=== PATIENT | female | born 1940 | race Caucasian/White ===

== ENCOUNTER → 2016-04-22 | Outpatient (CLI) | payer MEDICARE, OTHER ==
--- NOTE | 2016-04-22 22:14 | WWHP ---
CHIEF COMPLAINT: Patient is here for her routine gynecologic exam and mammogram. HPI: This is a 76-year-old G3, P3 with an LMP of 1989. The patient has been experiencing some vulvar irritation since around the time of her neck surgery in 11/2015. She says the area can feel itchy. She has also noticed a small bump in the vulvar area. She states it is not painful and does not resemble a blister. She has used [id number] Vagisil and there has been some improvement. She is otherwise without complaints and denies any postmenopausal bleeding. PAST MEDICAL HISTORY: Type 2 diabetes, hypothyroidism, elevated cholesterol, and chronic back problems eczema and she had a history of bulimia in her 40s. MEDICATIONS: 1. Escitalopram 10 mg daily. 2. Levothyroxine 125 mcg daily. 3. Metformin 500 mg 2 daily. 4. Simvastatin 40 mg daily. 5. Triamterene 1/2 tablet every other day. 6. Hydrocodone 7.5 mg p.r.n. 7. Elocon cream as directed. ALLERGIES TO SULFA, WHICH CAUSED A RASH. PAST SURGICAL HISTORY: Neck surgery in 11/2015, rotator cuff surgery x2, back surgery in the past, cholecystectomy, tonsillectomy and 2 sling procedures for the bladder in the past. Colonoscopy: She has had multiple ones done and the last one was in [address] Rushing. PAST OB HISTORY: 3 vaginal deliveries and 1 was put up for adoption. PAST WEB PRODUCTION ASSISTANT HISTORY: She has no history of STDs and has been menopausal since 1989. SOCIAL HISTORY: She quit smoking in 1969. She denies alcohol and drug use. She has been since 1966. She is retired. FAMILY HISTORY: Father had prostate cancer. Sister had lung and liver cancer. Mother had breast cancer in her 80s. Two brothers were alcoholics. Mother had CHF and diabetes. REVIEW OF SYSTEMS: Weight has been stable. She denies cardiac or GI problems. RESPIRATORY: She has had some and nasal drainage, which she thinks is related to allergies. She denies maltreatment or falling. Bladder control has been good since she had some type of injections for her incontinence in the past. PHYSICAL EXAM: Blood pressure 155/64. Repeat blood pressure 144/67. Weight 219 pounds. Height 5 feet 8-1/2 inches. Temperature 96.8, pulse 73. This is a well-developed, heavyset white female who is alert and oriented x3, in no acute distress. HEENT is within normal limits. NECK: Supple without mass or thyromegaly. CHEST AND LUNGS: Clear to auscultation. HEART: Regular rate and rhythm. Breasts are without mass or discharge. There is bilateral nipple inversion which she states has been this way for many years. Axillary is negative for adenopathy. BACK: Negative for CVA tenderness. ABDOMEN: Soft, nontender, without palpable masses. PELVIC: External genitalia reveal mild to moderate atrophy. There is 1-mm whitish, slightly raised bump that is pinhead size and is nontender and is nonerythematous. There are no other lesions noted. Cervix and vagina reveal mild to moderate atrophy without lesions. Cervix is somewhat stenotic. There is no evidence of prolapse. The uterus is midposition, nongravid size and nontender. There are no palpable adnexal masses or tenderness. Rectovaginal is negative for mass or tenderness and is negative for occult blood. EXTREMITIES: Nontender. IMPRESSION: 1. A 76-year-old menopausal female with mild vulvar pruritus. 2. Benign-appearing vulvar 1-mm bump that appears to be some type of small inclusion cyst or benign-appearing chamberlain. PLAN: 1. Pap smear was performed. 2. Self-breast examination was discussed. 3. Mammogram will be done today. 4. Kenalog 0.1% cream b.i.d. p.r.n. for vulvar pruritus and irritation. She will let me know if the very small bump changes. I have reassured her that this appears very benign. 5. She will get the records from her last bone density test to see when it was last done. If she is due for this, she can do this at [facility]. 6. She will return in 1 year. MATR
--- NOTE | 2016-04-24 07:37 | MM ---
Reason for exam: screening (asymptomatic). Last mammogram was performed 1 year and 8 months ago. History: Patient is postmenopausal and has history of other cancer at age 72. Family history of breast cancer in mother. Took estrogen for 14 years. Took progesterone for 14 years. Physical Findings: A clinical breast exam by your physician is recommended on an annual basis and results should be correlated with mammographic findings. MG 3D Screening Mammo W/Cad Bilateral CC and MLO view(s) were taken. Prior study comparison: September 01, 2014, bilateral MG screening mammo w CAD. May 13, 2012, bilateral digital screening mammo w/CAD. May 12, 2011, bilateral digital screening mammo w/CAD. There are scattered fibroglandular densities. No significant changes when compared with prior studies. ASSESSMENT: Negative, BI-RAD 1 RECOMMENDATION: Routine screening mammogram of both breasts in 1 year.
== END | disposition home or self-care (01) ==
LOC: WWCWWP 03-18 14:02
PROVIDERS: ATTEND Obstetrics & Gynecology
DX: Z12.31 Encounter for screening mammogram for malignant neoplasm of breast (principal)
CPT/HCPCS: 77063; G0202

== ENCOUNTER → 2016-09-16 | Outpatient (CLI) | payer MEDICARE, OTHER ==
--- NOTE | 2016-09-17 10:47 | WWPN ---
DATE OF SERVICE: 09/16/2016 CHIEF COMPLAINT: Hot flashes for 2 years. HPI: This is a 76-year-old G3, P3 with an LMP of 1989 who has been menopausal since 1989. She states she has been noticing hot flashes over the last 2 years or so and these can occur during the day and at night. She states they are tolerable. Occasionally she feels like her head is "in an oven". She has never been on HRT. She states she had similar symptoms when she was in her 50s, but they did improve after the menopause. MEDICATIONS: Please see her medications from the 04/22/16 H&P. She is also taking Ellura daily to prevent bladder infections, a protein supplement and Aricept. REVIEW OF SYSTEMS: She denies respiratory, cardiac or GI problems. PHYSICAL EXAM: Blood pressure is 130/78. Height 5 feet 8-1/2 inches. Weight 220 pounds. Temperature 97.7. Pulse 71. This is a well-developed, well-nourished white female who is alert and oriented x3 in no acute distress. IMPRESSION: 1. A 76-year-old menopausal female with hot flashes during the past 2 years, which resemble her menopausal symptoms in her 50s. At this time, I doubt the vasomotor symptoms are related to the menopause since she is so remote from the menopausal change. Differential diagnosis will include side effects from medications that she takes including her thyroid medicine, Ellura and Aricept. PLAN: 1. 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 She can make sure that the thyroid is well regulated. 2. I have also recommended that she follow up with her pharmacist who is familiar with all of her medications to see if any medications can have hot flashes as a side effect and if so she can follow up with the doctor prescribing that particular medication. 3. I have also recommended that she dress in layers and keep the glass of ice water near by when she does have these type of symptoms. 4. We have discussed how I do not feel that these are directly related to her ovarian function change that she went through in her 50s. 5. She will return in 04/12 for her annual examination p.r.n. Total time spent with the patient 15 minutes. MART
== END | disposition home or self-care (01) ==
LOC: WWCWWP 11:29
PROVIDERS: ATTEND Obstetrics & Gynecology
DX: Z01.419 Encounter for gynecological examination (general) (routine) without abnormal findings (principal)

== ENCOUNTER → 2016-11-18 | Outpatient (CLI) | payer MEDICARE, OTHER ==
--- NOTE | 2016-11-18 15:29 | CT ---
EXAMINATION TYPE: CT cervical spine wo con DATE OF EXAM: 11/18/2016 COMPARISON: CT cervical spine September 10, 2015 HISTORY: Follow-up from cervical fusion . CT DLP: 611.00 mGycm. Automated Exposure Control for Dose Reduction was Utilized. TECHNIQUE: CT scan of the cervical spine is obtained without contrast, axial images are obtained, sa gittal and coronal reformatted images are also reviewed. FINDINGS: Cervical spine is visualized in its entirety from C1 through upper thoracic levels, redemon strate straightened alignment without evidence of acute fracture or dislocation. Prevertebral soft t issue appears within normal limits. The C1-C2 articulation is within normal limits on the coronal im ages. There is interval surgical change with artificial disc material anterior fusion plate C6-C7 level. Th ere is persistent moderate spurring and mild to moderate disc space narrowing C5-C6 level. Thyroid gl and is felt within normal limits. Lung apices are clear. IMPRESSION: Interval surgery C6-C7 level with satisfactory alignment noted.
== END | disposition home or self-care (01) ==
LOC: RADCTMAIN 15:00
PROVIDERS: ATTEND Neurological Surgery
DX: M48.02 Spinal stenosis, cervical region (principal); Z98.890 Other specified postprocedural states
CPT/HCPCS: 72125

== ENCOUNTER 2017-05-20 13:49 | Emergency (ER) | payer MEDICARE, OTHER ==
[2017-05-20 14:06] VITALS: RESP 18
[2017-05-20 15:18] LABS: Partial Thromboplastin Time 22.2 sec (22.0-30.0); Prothrombin Time 10.2 sec (9.0-12.0)
[2017-05-20 15:19] LABS: Basophils % (A) 1 %; Eosinophils # (A) 0.5 k/uL (0-0.7); Eosinophils % (A) 6 %; HCT 43.5 % (34.0-46.0); HGB 14.9 gm/dL (11.4-16.0); Lymphocytes # (A) 2.1 k/uL (1.0-4.8); Lymphocytes % (A) 24 %; MCH 31.2 pg (25.0-35.0); MCHC 34.2 g/dL (31.0-37.0); MCV 91.3 fL (80.0-100.0); Mean Platelet Volume 7.1; Monocytes # (A) 0.4 k/uL (0-1.0); Monocytes % (A) 4 %; Neutrophils # (A) 5.5 k/uL (1.3-7.7); Neutrophils % (A) 64 %; Platelet Count 191 k/uL (150-450); RBC 4.76 m/uL (3.80-5.40); RDW 13.3 % (11.5-15.5); WBC 8.6 k/uL (3.8-10.6)
[2017-05-20] MEDS ORDERED: SODIUM CHLORIDE 0.9% 500 ML IV STA (15:26)
[2017-05-20] MEDS ORDERED: MECLIZINE 12.5 MG TAB PO STA (15:26)
--- NOTE | 2017-05-20 15:29 | ED ---
General Adult HPI - General Chief complaint: Dizziness Stated complaint: Dizziness Time Seen by Provider: 05/20/17 15:13 Source: patient, RN notes reviewed Mode of arrival: wheelchair Limitations: no limitations - History of Present Illness Initial comments: 77-year-old female presents to the emergency department with a chief complaint of vertigo attack. Patient has been diagnosed with vertigo and sees Dr. Blake. The last 2 nights she's woken up and she is on her way to the bathroom she had an episode of spinning. She states that she that down she corrected herself and it improved. Today when she was at [employer] she had on episode where the world was spinning she was able to collect herself and sit down and she states it has improved but if she sits up or looks up she will get this spinning like sensation again. No nausea no vomiting no chest pain no shortness of breath with this. Patient states much like the vertigo she's had in the past just seems more intense. Patient denies any recent cough and congestion-like symptoms. They were concerned due to how intense the spinning was at a boxer so she thought that she should be seen. Patient denies any recent fever, chills, shortness of breath, chest pain, back pain, abdominal pain , nausea vomiting, numbness or tingling, dysuria or hematuria, constipation or diarrhea, headaches or visual changes, or any other current symptoms. - Related Data Home Medications Medication Instructions Recorded Confirmed Levothyroxine Sodium [Synthroid] 125 mcg PO DAILY 05/22/15 05/20/17 Simvastatin [Zocor] 40 mg PO DAILY 05/22/15 05/20/17 Triamterene-Hctz 37.5-25Mg 0.5 tab PO DAILY 05/22/15 05/20/17 [Maxzide 37.5-25] metFORMIN HCL [Glucophage] 500 mg PO DAILY 10/18/15 05/20/17 Ergocalciferol (Vitamin D2) 50,000 unit PO FR 05/20/17 05/20/17 [Vitamin D2] Previous Rx's Medication Instructions Recorded Ciprofloxacin HCl [Cipro] 500 mg PO Q12HR #14 tablet 05/20/17 Meclizine [Antivert] 12.5 mg PO Q6H #20 tablet 05/20/17 Allergies Allergy/AdvReac Type Severity Reaction Status Date / Time Sulfa (Sulfonamide Allergy Rash/Hives Verified 05/20/17 16:00 Antibiotics) Review of Systems ROS Statement: Those systems with pertinent positive or pertinent negative responses have been documented in the HPI. ROS Other: All systems not noted in ROS Statement are negative. Past Medical History Past Medical History: Diabetes Mellitus, Hyperlipidemia, Osteoarthritis (OA), Thyroid Disorder Additional Past Medical History / Comment(s): Thyroid disorder, states was recently taken off oral diabetes medication. History of Any Multi-Drug Resistant Organisms: None Reported Past Surgical History: Back Surgery, Cholecystectomy Additional Past Surgical History / Comment(s): Bilateral rotator cuff surgery Past Anesthesia/Blood Transfusion Reactions: No Reported Reaction Past Psychological History: No Psychological Hx Reported Smoking Status: Former smoker Past Alcohol Use History: None Reported Past Drug Use History: None Reported - Past Family History Father Family Medical History: Cancer Mother Family Medical History: Cancer General Exam Limitations: no limitations General appearance: alert, in no apparent distress Eye exam: Present: normal appearance, PERRL, EOMI. Absent: scleral icterus, conjunctival injection, periorbital swelling ENT exam: Present: normal exam, mucous membranes moist Neck exam: Present: normal inspection. Absent: tenderness, meningismus, lymphadenopathy Respiratory exam: Present: normal lung sounds bilaterally. Absent: respiratory distress, wheezes, rales, rhonchi, stridor Cardiovascular Exam: Present: regular rate, normal rhythm, normal heart sounds. Absent: systolic murmur, diastolic murmur, rubs, gallop, clicks Neurological exam: Present: alert, oriented X3, CN II-XII intact, reflexes normal. Absent: motor sensory deficit Psychiatric exam: Present: normal affect, normal mood Skin exam: Present: warm, dry, intact, normal color. Absent: rash Course Vital Signs 05/20/17 05/20/17 14:04 16:27 Temperature 98.2 F Pulse Rate 68 65 Respiratory 18 18 Rate Blood Pressure 125/91 129/66 O2 Sat by Pulse 98 97 Oximetry EKG Findings - EKG Comments: EKG Findings:: normal sinus rhythm 63 bpm, normal axis, no atopy, no S-T depressions or elevations, Medical Decision Making - Medical Decision Making 77-year-old female presents with chief complaint of vertigo-like symptoms. Patient does have a history of vertigo and states this feels much like this. At this time patient's lab work has been reviewed. She was reassessed and states that her vertigo is much improved after the bathroom without issues. This and we'll start her on Antivert for home as well as an antibiotic for the UTI. We did discuss follow-up with Dr. Blake her ENT for continued vertigo and return parameters. Patient states she's feeling much better she does feel comfortable going home and all questions have been answered. She will be discharged. - Lab Data Result diagrams: 05/20/17 14:43 05/20/17 14:43 Lab Results 05/20/17 05/20/17 05/20/17 Range/Units 14:43 14:43 14:43 WBC 8.6 (3.8-10.6) k/uL RBC 4.76 (3.80-5.40) m/uL Hgb 14.9 (11.4-16.0) gm/dL Hct 43.5 (34.0-46.0) % MCV 91.3 (80.0-100.0) fL MCH 31.2 (25.0-35.0) pg MCHC 34.2 (31.0-37.0) g/dL RDW 13.3 (11.5-15.5) % Plt Count 191 (150-450) k/uL Neutrophils % 64 % Lymphocytes % 24 % Monocytes % 4 % Eosinophils % 6 % Basophils % 1 % Neutrophils # 5.5 (1.3-7.7) k/uL Lymphocytes # 2.1 (1.0-4.8) k/uL Monocytes # 0.4 (0-1.0) k/uL Eosinophils # 0.5 (0-0.7) k/uL Basophils # 0.0 (0-0.2) k/uL PT (9.0-12.0) sec INR (<1.2) APTT (22.0-30.0) sec Sodium 140 (137-145) mmol/L Potassium 4.5 (3.5-5.1) mmol/L Chloride 100 (98-107) mmol/L Carbon Dioxide 26 (22-30) mmol/L Anion Gap 14 mmol/L BUN 34 H (7-17) mg/dL Creatinine 1.18 H (0.52-1.04) mg/dL Est GFR (CKD-EPI)AfAm 51 (>60 ml/min/1.73 sqM) Est GFR (CKD-EPI)NonAf 44 (>60 ml/min/1.73 sqM) Glucose 83 (74-99) mg/dL Calcium 10.1 (8.4-10.2) mg/dL Total Bilirubin 0.3 (0.2-1.3) mg/dL AST 29 (14-36) U/L ALT 33 (9-52) U/L Alkaline Phosphatase 89 (38-126) U/L Total Creatine Kinase 126 (30-135) U/L CK-MB (CK-2) 1.3 (0.0-2.4) ng/mL CK-MB (CK-2) Rel Index 1.0 Troponin I <0.012 (0.000-0.034) ng/mL Total Protein 7.2 (6.3-8.2) g/dL Albumin 4.4 (3.5-5.0) g/dL Urine Color Urine Appearance (Clear) Urine pH (5.0-8.0) Ur Specific Charlo (1.001-1.035) Urine Protein (Negative) Urine Glucose (UA) (Negative) Urine Ketones (Negative) Urine Blood (Negative) Urine Nitrite (Negative) Urine Bilirubin (Negative) Urine Urobilinogen (<2.0) mg/dL Ur Leukocyte Esterase (Negative) Urine RBC (0-5) /hpf Urine WBC (0-5) /hpf Ur Squamous Epith Cells (0-4) /hpf Urine Bacteria (None) /hpf Urine Mucus (None) /hpf 05/20/17 05/20/17 Range/Units 14:43 16:15 WBC (3.8-10.6) k/uL RBC (3.80-5.40) m/uL Hgb (11.4-16.0) gm/dL Hct (34.0-46.0) % MCV (80.0-100.0) fL MCH (25.0-35.0) pg MCHC (31.0-37.0) g/dL RDW (11.5-15.5) % Plt Count (150-450) k/uL Neutrophils % % Lymphocytes % % Monocytes % % Eosinophils % % Basophils % % Neutrophils # (1.3-7.7) k/uL Lymphocytes # (1.0-4.8) k/uL Monocytes # (0-1.0) k/uL Eosinophils # (0-0.7) k/uL Basophils # (0-0.2) k/uL PT 10.2 (9.0-12.0) sec INR 1.0 (<1.2) APTT 22.2 (22.0-30.0) sec Sodium (137-145) mmol/L Potassium (3.5-5.1) mmol/L Chloride (98-107) mmol/L Carbon Dioxide (22-30) mmol/L Anion Gap mmol/L BUN (7-17) mg/dL Creatinine (0.52-1.04) mg/dL Est GFR (CKD-EPI)AfAm (>60 ml/min/1.73 sqM) Est GFR (CKD-EPI)NonAf (>60 ml/min/1.73 sqM) Glucose (74-99) mg/dL Calcium (8.4-10.2) mg/dL Total Bilirubin (0.2-1.3) mg/dL AST (14-36) U/L ALT (9-52) U/L Alkaline Phosphatase (38-126) U/L Total Creatine Kinase (30-135) U/L CK-MB (CK-2) (0.0-2.4) ng/mL CK-MB (CK-2) Rel Index Troponin I (0.000-0.034) ng/mL Total Protein (6.3-8.2) g/dL Albumin (3.5-5.0) g/dL Urine Color Yellow Urine Appearance Cloudy H (Clear) Urine pH 6.0 (5.0-8.0) Ur Specific Charlo 1.021 (1.001-1.035) Urine Protein Negative (Negative) Urine Glucose (UA) Negative (Negative) Urine Ketones Negative (Negative) Urine Blood Negative (Negative) Urine Nitrite Positive H (Negative) Urine Bilirubin Negative (Negative) Urine Urobilinogen <2.0 (<2.0) mg/dL Ur Leukocyte Esterase Large H (Negative) Urine RBC 3 (0-5) /hpf Urine WBC 35 H (0-5) /hpf Ur Squamous Epith Cells 2 (0-4) /hpf Urine Bacteria Many H (None) /hpf Urine Mucus Rare H (None) /hpf - Radiology Data Radiology results: report reviewed, image reviewed Disposition Clinical Impression: Vertigo, UTI (urinary tract infection) Disposition: HOME SELF-CARE Condition: Stable Instructions: Vertigo (ED), Urinary Tract Infection in Women (ED) Additional Instructions: Please use medication as discussed. Please follow up with family doctor if symptoms have not improved over the next two days. Please return to the emergency room if your symptoms increase or worsen or for any other concerns. Prescriptions: Ciprofloxacin HCl [Cipro] 500 mg PO Q12HR #14 tablet Meclizine [Antivert] 12.5 mg PO Q6H #20 tablet Referrals: Pedro Luis Anaya MD [Primary Care Provider] - 1-2 days Time of Disposition: 16:52
[2017-05-20 15:30] LABS: Albumin 4.4 g/dL (3.5-5.0); Calcium 10.1 mg/dL (8.4-10.2); Potassium 4.5 mmol/L (3.5-5.1); Total Bilirubin 0.3 mg/dL (0.2-1.3); Total Protein 7.2 g/dL (6.3-8.2)
[2017-05-20 15:43] LABS: Creatine Kinase 126 U/L (30-135)
[2017-05-20 15:56] LABS: Creatine Kinase MB 1.3 ng/mL (0.0-2.4); Troponin I <0.012 ng/mL (0.000-0.034)
--- NOTE | 2017-05-20 16:22 | CT ---
EXAMINATION TYPE: CT brain wo con DATE OF EXAM: 05/20/2017 COMPARISON: 02/07/2015 HISTORY: Episodes of dizziness. Recently diagnosed with vertigo. CT DLP: [address] of the brain was performed. The ventricles, basal cisterns and sulci overlying the cerebral convexities demonstrate mild enlargem ent. There is no evidence for intracranial hemorrhage or sulcal effacement. There is decreased attenuation about the periventricular white matter and deep white matter of both c erebral hemispheres, compatible with chronic small vessel ischemia. Differential diagnosis does inclu de demyelination. No mass effects are seen.No midline shift. Osseous calvarium is intact. If symptoms persist consider MRI. IMPRESSION: 1. Age related atrophic and chronic small vessel ischemic change without acute intracranial process s een at this time.
[2017-05-20 16:35] LABS: Appearance,Urine Cloudy (Clear); Bacteria,Urine Many /hpf; Bilirubin,Urine Negative (Negative); Blood,Urine Negative (Negative); Color,Urine Yellow; Glucose,Urine (UA) Negative (Negative); Ketones,Urine Negative (Negative); Leukocyte Esterase,Urine Large (Negative); Mucus,Urine Rare /hpf; Nitrite,Urine Positive (Negative); Protein,Urine Negative (Negative); RBC,Urine 3 /hpf (0-5); Specific Gravity,Urine 1.021 (1.001-1.035); Squamous Epithelial Cell,Urine 2 /hpf (0-4); Urobilinogen,Urine <2.0 mg/dL (<2.0); WBC,Urine 35 /hpf (0-5)
[2017-05-20 17:11] VITALS: BP 119/59; PULSE 67; TEMP 97.7
== END 2017-05-20 17:11 | disposition home or self-care (01) ==
LOC: EC 13:49
DX: R42 Dizziness and giddiness (principal); N39.0 Urinary tract infection, site not specified; E11.9 Type 2 diabetes mellitus without complications; E78.5 Hyperlipidemia, unspecified; E07.9 Disorder of thyroid, unspecified; Z88.2 Allergy status to sulfonamides; Z79.84 Long term (current) use of oral hypoglycemic drugs; Z79.899 Other long term (current) drug therapy; Z87.891 Personal history of nicotine dependence
CPT/HCPCS: 36415; 70450; 80053; 81001; 82550; 82553; 84484; 85025; 85610; 85730; 93005; 96360; 99284

== ENCOUNTER → 2017-06-02 | Outpatient (CLI) | payer MEDICARE, OTHER ==
[2017-06-02 14:44] VITALS: BP 139/79; PULSE 72; RESP 18; TEMP 96.9; BMI 33.0
--- NOTE | 2017-06-02 15:25 | P.HPOB ---
History of Present Illness H&P Date: 06/02/17 Chief Complaint: The patient is here for her routine gynecologic exam and mammogram. This is a 77-year-old G3 PIII with an LMP of 1989. The patient is without gynecologic complaints. She denies any significant hot flashes. She denies any postmenopausal bleeding. Review of Systems Weight has been stable. She denies respiratory, cardiac, and G.I. problems. She denies maltreatment or falling. : she denies any significant problems with urinary leakage. Past Medical History Past Medical History: Diabetes Mellitus (Type II diabetes), Hyperlipidemia, Osteoarthritis (OA), Thyroid Disorder (Hypothyroidism) Additional Past Medical History / Comment(s): Thyroid disorder, states was recently taken off oral diabetes medication. She had a problem with bulimia in her 40s. Past ASSISTANT CURATOR history: she has no history of STDs. History of Any Multi-Drug Resistant Organisms: None Reported Past Surgical History: Back Surgery, Cholecystectomy Additional Past Surgical History / Comment(s): Bilateral rotator cuff surgery. Colonoscopy 2014 she has had multiple colonoscopies in the past. Past Anesthesia/Blood Transfusion Reactions: No Reported Reaction Past Psychological History: No Psychological Hx Reported Smoking Status: Former smoker (Quit in 1969) Past Alcohol Use History: Rare (2 per year) Past Drug Use History: None Reported Additional History: She has been since 1966 and is retired. - Past Family History Father Family Medical History: Cancer (Prostate) Mother Family Medical History: Cancer (Breast cancer in her 80s) Medications and Allergies Home Medications Medication Instructions Recorded Confirmed Type Levothyroxine Sodium [Synthroid] 125 mcg PO DAILY 05/22/15 06/02/17 History Simvastatin [Zocor] 40 mg PO DAILY 05/22/15 06/02/17 History Triamterene-Hctz 37.5-25Mg 0.5 tab PO DAILY 05/22/15 06/02/17 History [Maxzide 37.5-25] metFORMIN HCL [Glucophage] 500 mg PO DAILY 10/18/15 06/02/17 History Ergocalciferol (Vitamin D2) 50,000 unit PO FR 05/20/17 06/02/17 History [Vitamin D2] Meclizine [Antivert] 12.5 mg PO Q6H #20 tablet 05/20/17 06/02/17 Rx Allergies Allergy/AdvReac Type Severity Reaction Status Date / Time Sulfa (Sulfonamide Allergy Rash/Hives Verified 05/20/17 16:00 Antibiotics) Exam - Vital Signs Vital signs: Vital Signs Temp Pulse Resp BP 06/02/17 14:25 96.9 F L 72 18 139/79 Intake and Output 06/02/17 06/02/17 06/02/17 06:59 14:59 22:59 Other: Weight 98.43 kg Height 5'8", BMI 33.0. This is a well-developed heavyset white female who is alert and oriented times 3 in no acute distress. HEENT: Within normal limits. NECK: Supple without mass or thyromegaly. CHEST AND LUNGS: Clear to auscultation. HEART: Regular rate and rhythm. BREASTS: Are without mass or discharge. She has bilateral nipple inversion which states she had all of her life. AXILLARY EXAM: Negative for adenopathy. BACK: Negative for CVA tenderness. ABDOMEN: Soft, nontender, without palpable masses. PELVIC EXAM: Normal external genitalia with mild to moderate atrophy. Cervix and vagina appear normal with mild to moderate atrophy. There is no unusual discharge. There is no evidence of prolapse. The uterus is midposition, nongravid size and nontender. There are no palpable adnexal masses or tenderness. RECTAL EXAM: rectovaginal exam is negative for mass or tenderness and is negative for occult blood. EXTREMITIES: Nontender. IMPRESSION: 1. 77-year-old menopausal female with a normal gynecologic exam. PLAN: 1. Pap smear was deferred since she had a normal one last year. 2. Self breast awareness was discussed. 3. Screening mammogram will be done today. 4. Osteoporosis prevention was discussed. Bone density screening will be done today. 5. She believes she is due for colonoscopy and will be seeing Dr. Rushing for this. 6. She will return in one year. 7. She did receive a flu shot last fall.
--- NOTE | 2017-06-03 16:40 | BD ---
EXAMINATION TYPE: MG DEXA axial skeleton. DATE OF EXAM: 06/02/2017 COMPARISON: 11/14/2011 CLINICAL HISTORY: Height: 66.5 in Weight: 216 lbs FRAX RISK QUESTIONS: Alcohol (3 or more units per day): NO Family History (Parent hip fracture): NO Glucocorticoids (More than 3mos): NO (Ex: prednisone, prednisolone, methylprednisolone, dexamethasone, and hydrocortisone). History of Fracture in Adulthood: YES LEFT FOOT AGE 71 Secondary Osteoporosis: 1. Type 1 Diabetes: NO 2. Hyperthyroidism: NO 3. Menopause before 45: NO 4. Malnutrition: NO 5. Chronic liver disease: NO Rheumatoid Arthritis: NO Current Tobacco Use: NO RISK FACTORS HISTORY OF: Surgery to Spine: YES When: 5 BACK SURGERIES Active: MODERATE Postmenopausal woman: AGE 50 Take estrogen and/or progesterone medications: NOT NOW How long: TOOK HORMONES FOR 14 YEARS MEDICATIONS: Thyroid Medications: YES Which medication: Synthroid How Lon + YEARS Additional Medications: VIT D, SYNTHROID, METFORMIN,MAXIDE, CHOLESTEROL MEDS, ANXIETY MEDS EXAM MEASUREMENTS: Bone mineral densitometry was performed using the [employer] System. PT HAS HAD 5 BACK SURGERIES. Bone mineral density about the R hip (g/cm2): 0.848 Bone mineral density about the L hip (g/cm2): 0.730 T Score values are as follows: -----R Neck: -1.4 -----L Neck: -2.2 -----R Total: -1.9 -----L Total: -1.9 Bone mineral density has: Decreased -6.6% since study of: 11/14/2011 IMPRESSION: Osteopenia (T Score between -2.5 and -1). There is slightly increased risk of fracture and the patient may be considered for treatment. Re-Screen 2-5 years. NOTE: T-SCORE=SD OF THE YOUNG ADULT MEAN.
--- NOTE | 2017-06-04 09:38 | MM ---
Reason for exam: screening (asymptomatic). Last mammogram was performed 1 year and 1 month ago. History: Patient is postmenopausal and has history of other cancer at age 72. Family history of breast cancer in mother. Took estrogen for 14 years. Took progesterone for 14 years. Physical Findings: A clinical breast exam by your physician is recommended on an annual basis and results should be correlated with mammographic findings. MG 3D Screening Mammo W/Cad Bilateral CC and MLO view(s) were taken. Prior study comparison: April 22, 2016, bilateral MG 3d screening mammo w/cad. September 01, 2014, bilateral MG screening mammo w CAD. There are scattered fibroglandular densities. No significant changes when compared with prior studies. ASSESSMENT: Benign, BI-RAD 2 RECOMMENDATION: Routine screening mammogram of both breasts in 1 year.
== END | disposition home or self-care (01) ==
LOC: WWCWWP 13:40
PROVIDERS: ATTEND Obstetrics & Gynecology
DX: Z12.31 Encounter for screening mammogram for malignant neoplasm of breast (principal); M85.80 Other specified disorders of bone density and structure, unspecified site; Z78.0 Asymptomatic menopausal state; Z13.820 Encounter for screening for osteoporosis
CPT/HCPCS: 77063; 77067; 77080

== ENCOUNTER → 2017-06-25 | Outpatient (CLI) | payer MEDICARE, OTHER | END | disposition home or self-care (01) | LOC: NEUROMAIN 12:05 | PROVIDERS: ATTEND Otolaryngology | DX: R42 Dizziness and giddiness (principal) | CPT/HCPCS: 92537; 92540 ==

== ENCOUNTER → 2017-10-09 | Outpatient (CLI) | payer MEDICARE, OTHER ==
--- NOTE | 2017-10-11 11:33 | MR ---
EXAMINATION TYPE: MR shoulder LT wo con DATE OF EXAM: 10/09/2017 COMPARISON: NONE HISTORY: Left shoulder pain, previous surgery 15 years ago. TECHNIQUE: Multiplanar, multisequence imaging of the left shoulder is performed without contrast. FINDINGS: Exam is noted suboptimal secondary to patient pain causing motion. Rotator Cuff: There is some fraying and increased signal along the articular surface of the infraspin atus tendon near attachment at humeral head with subchondral cystic change measuring roughly 5 mm AP diameter parasagittal image 7 and 3 mm transversely paracoronal image 14. Supraspinatus tendon is int act with some increased signal in adjacent fluid at distal attachment paracoronal image 9. Subscapula ris tendon is intact. Rotator cuff muscle bulk is fairly well maintained. Acromioclavicular Joint: There is moderate to advanced joint space loss with mild spurring at acromio clavicular joint, superior capsular hypertrophy is present. Inferior fat plane is maintained. Distal acromion morphology is unremarkable. Glenohumeral Joint: There is narrowing with [id number] glenohumeral joint effusion. No significant spurring is present. Labrum: Blunted increased signal is consistent with degenerative change in the superior labrum. Biceps Tendon: The long head of biceps is not well identified. Proximal humerus is evidence of old he aled fracture involving the surgical neck with minimal chronic displacement seen best paracoronal artur ge 18 and parasagittal image 6 with chronic deformity present. Intra-articular portion long head of b iceps tendon is felt to be within normal limits on paracoronal images. There appears to be shallow gr oove in the extra-articular portion. Adjacent artifact is noted axial image 4 anterolaterally from pr ior surgery. Bone marrow signal: Some subchondral cystic change in the superior humeral head. Other: No additional significant abnormality is appreciated. IMPRESSION: 1. Mild tendinosis of distal supraspinatus tendon. Mild tendinosis with partial articular surface tea r distal infraspinatus tendon. 2. Old healed fracture surgical neck proximal humerus. 3. 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 Deg enerative change superior labrum.
== END | disposition home or self-care (01) ==
LOC: RADMRIMAIN 17:31
PROVIDERS: ATTEND Family Medicine
DX: S46.012A Strain of muscle(s) and tendon(s) of the rotator cuff of left shoulder, initial encounter (principal); M19.012 Primary osteoarthritis, left shoulder; M75.82 Other shoulder lesions, left shoulder; Z87.81 Personal history of (healed) traumatic fracture

== ENCOUNTER → 2018-09-21 | Outpatient (CLI) | payer MEDICARE, OTHER ==
[2018-09-21 11:07] VITALS: BP 120/59; PULSE 73; RESP 18; TEMP 98.1; BMI 33.7
--- NOTE | 2018-09-21 12:47 | P.HPOB ---
History of Present Illness H&P Date: 09/21/18 Chief Complaint: The patient is here for her routine gynecologic exam and ma mmogram. This is a 78-year-old with an LMP of 1989. The patient is without gynecologic complaints and denies any postmenopausal bleeding. Review of Systems She is getting about 5 pounds over the last year. She denies respiratory, cardiac and G.I. problems. She denies maltreatment. She has fallen off of stairs during the past year and did have a concussion. : she denies any significant problems with urinary leakage. Past Medical History Past Medical History: Cancer, Diabetes Mellitus, Hyperlipidemia, Osteoarthritis (OA), Thyroid Disorder Additional Past Medical History / Comment(s): Type II diabetes. Hypothyroidism. Basal cell skin cancer. She had a problem with bulimia in her 40s. Past MANAGER MEDICAL WRITING history: she has no history of STDs. History of Any Multi-Drug Resistant Organisms: None Reported Past Surgical History: Back Surgery, Cholecystectomy Additional Past Surgical History / Comment(s): Bilateral rotator cuff surgery. Colonoscopy 2014 she has had multiple colonoscopies in the past. Past Anesthesia/Blood Transfusion Reactions: No Reported Reaction Past Psychological History: No Psychological Hx Reported Smoking Status: Former smoker Past Alcohol Use History: Rare (5 to 10 per year) Additional Past Alcohol Use History / Comment(s): Quit smoking in 1969. Past Drug Use History: None Reported Additional History: She has been since 1966 and is retired. - Past Family History Father Family Medical History: Cancer Additional Family Medical History / Comment(s): Prostate cancer. Mother Family Medical History: Cancer Additional Family Medical History / Comment(s): Breast cancer in her 80s. Medications and Allergies Home Medications Medication Instructions Recorded Confirmed Type Levothyroxine Sodium [Synthroid] 125 mcg PO DAILY 05/22/15 09/21/18 History Simvastatin [Zocor] 40 mg PO DAILY 05/22/15 09/21/18 History Triamterene-Hctz 37.5-25Mg 0.5 tab PO DAILY 05/22/15 09/21/18 History [Maxzide 37.5-25] metFORMIN HCL [Glucophage] 500 mg PO DAILY 10/18/15 09/21/18 History Ascorbic Acid [Vitamin C] 500 mg PO DAILY 09/21/18 09/21/18 History Cholecalciferol [Vitamin D3 (25 1,000 unit PO DAILY 09/21/18 09/21/18 History Mcg = 1000 Iu)] Cyanocobalamin [Vitamin B-12] 500 mcg PO DAILY 09/21/18 09/21/18 History Naproxen Sodium [Aleve] 220 mg PO DAILY 09/21/18 09/21/18 History Allergies Allergy/AdvReac Type Severity Reaction Status Date / Time cat dander Allergy Rash/Hives Unverified 09/21/18 11:08 mushroom Allergy Rash/Hives Unverified 09/21/18 11:08 Sulfa (Sulfonamide Allergy Rash/Hives Verified 09/21/18 11:08 Antibiotics) tree and shrub pollen Allergy Rash/Hives Unverified 09/21/18 11:08 Exam Vital Signs Temp Pulse Resp BP 09/21/18 11:00 98.1 F 73 18 120/59 Height 5'8", weight 222 pounds, BMI 34. This is a well-developed well-nourished heavyset white female who is alert and oriented times 3 in no acute distress. HEENT: Within normal limits. NECK: Supple without mass or thyromegaly. CHEST AND LUNGS: Clear to auscultation. HEART: Regular rate and rhythm. BREASTS: Are without mass or discharge. There is bilateral nipple inversion that the patient states has been present since . There is a mole superior to the left nipple measuring approximately 1 x 2 cm. AXILLARY EXAM: Negative for adenopathy. BACK: Negative for CVA tenderness. ABDOMEN: Soft, nontender, without palpable masses. PELVIC EXAM: Normal external genitalia with mild to moderate atrophy. Cervix and vagina appear normal mild to moderate atrophy. There is no unusual discharge. There is no evidence of prolapse. The uterus is midposition, nongravid size and nontender. There are no palpable adnexal masses or tenderness. RECTAL EXAM: rectovaginal exam is negative for mass or tenderness and is negative for occult blood. EXTREMITIES: Nontender. IMPRESSION: 1. 78-year-old menopausal female with normal gynecologic exam. PLAN: 1. Pap smear was performed. We will try to obtain records from Dr. Lacie henriquez Pap smears over the past 15 years. If it is determined that she has had adequate cervical cancer screening, and if the current Pap smear is unremarkable, we will consider discontinuing Pap smear testing. 2. Self breast awareness was discussed with the patient. 3. Screening mammogram will be done today. 4. Osteoporosis prevention was discussed. I have stressed the importance of adequate calcium, vitamin D and regular exercise. Recommended amounts of calcium and vitamin D were also discussed. 5. She does get flu shots in the fall. 6. She states she will see Dr. Navarro for regular skin checks and will show him the mall on the left breast. 6. The patient was advised to return in 1-2 years for her well woman examination.
--- NOTE | 2018-09-22 15:03 | MM ---
Reason for exam: screening (asymptomatic). Last mammogram was performed 1 year and 4 months ago. History: Patient is postmenopausal and has history of other cancer at age 72. Family history of breast cancer in mother. Took estrogen for 14 years. Took progesterone for 14 years. MG 3D Screening Mammo W/Cad Bilateral CC and MLO view(s) were taken. Prior study comparison: June 02, 2017, bilateral MG 3d screening mammo w/cad. April 22, 2016, bilateral MG 3d screening mammo w/cad. The breast tissue is heterogeneously dense. This may lower the sensitivity of mammography. No suspicious abnormality. No significant new finding when compared with prior studies. ASSESSMENT: Negative, BI-RAD 1 RECOMMENDATION: Routine screening mammogram of both breasts in 1 year.
== END ==
LOC: WWCWWP 10:23
PROVIDERS: ATTEND Obstetrics & Gynecology
DX: Z12.31 Encounter for screening mammogram for malignant neoplasm of breast (principal)
CPT/HCPCS: 77063; 77067

== ENCOUNTER 2019-01-23 14:03 | Emergency (ER) | payer MEDICARE, OTHER ==
[2019-01-23] MEDS ORDERED: Acetaminophen-Codeine 300-30mg TAB PO STA (14:24)
--- NOTE | 2019-01-23 14:24 | ED ---
Back Pain HPI - General Source: patient Limitations: no limitations <LouHernestoo - Last Filed: 01/23/19 16:26> <Sloan Auguste - Last Filed: 01/23/19 16:37> - General Chief Complaint: Back Pain/Injury Stated Complaint: Back pain Time Seen by Provider: 01/23/19 14:08 - History of Present Illness Initial Comments: Patient is an 79-year-old female with history of diabetes and spinal stenosis is presenting to emergency Department with a chief complaint of back pain. She reports a pain started 2 days ago after she was mopping. She reports the pain gradually has worsened since it appears to be exacerbated with forward flexion and rotation. She states the pain is sharp in nature and it feels different than her typical pain. Patient denies nausea vomiting urinary bowel changes. Patient denies any abdominal pain, chest pain, shortness of breath and dyspnea on exertion. Patient denies anesthesia, urinary or bowel incontinence. Patient does report to lumbar surgeries and a cervical fusion. Patient reports taking lowc-[id number] Tylenol and naproxen. Patient denies a history of connective tissue diseases, aortic aneurysms or dissections. Patient is not a smoker. Denies focal deficits. Denies trauma to the region (Ranjan Blaek) - Related Data Home Medications Medication Instructions Recorded Confirmed Levothyroxine Sodium [Synthroid] 125 mcg PO DAILY 05/22/15 09/21/18 Simvastatin [Zocor] 40 mg PO DAILY 05/22/15 09/21/18 Triamterene-Hctz 37.5-25Mg 0.5 tab PO DAILY 05/22/15 09/21/18 [Maxzide 37.5-25] metFORMIN HCL [Glucophage] 500 mg PO DAILY 10/18/15 09/21/18 Ascorbic Acid [Vitamin C] 500 mg PO DAILY 09/21/18 09/21/18 Cholecalciferol [Vitamin D3 (25 1,000 unit PO DAILY 09/21/18 09/21/18 Mcg = 1000 Iu)] Cyanocobalamin [Vitamin B-12] 500 mcg PO DAILY 09/21/18 09/21/18 Naproxen Sodium [Aleve] 220 mg PO DAILY 09/21/18 09/21/18 Previous Rx's Medication Instructions Recorded Cephalexin [Keflex] 500 mg PO Q6HR #40 cap 01/23/19 Allergies Allergy/AdvReac Type Severity Reaction Status Date / Time cat dander Allergy Rash/Hives Verified 01/23/19 14:59 mushroom Allergy Rash/Hives Verified 01/23/19 14:59 Sulfa (Sulfonamide Allergy Rash/Hives Verified 01/23/19 14:59 Antibiotics) tree and shrub pollen Allergy Rash/Hives Verified 01/23/19 14:59 Review of Systems ROS Other: All systems not noted in ROS Statement are negative. <Ranjan Blake - Last Filed: 01/23/19 16:26> ROS Other: All systems not noted in ROS Statement are negative. <Sloan Auguste - Last Filed: 01/23/19 16:37> ROS Statement: Those systems with pertinent positive or pertinent negative responses have been documented in the HPI. Past Medical History Past Medical History: Cancer, Diabetes Mellitus, Hyperlipidemia, Osteoarthritis (OA), Thyroid Disorder Additional Past Medical History / Comment(s): Type II diabetes. Hypothyroidism. Basal cell skin cancer. She had a problem with bulimia in her 40s. 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 History of Any Multi-Drug Resistant Organisms: None Reported Past Surgical History: Back Surgery, Cholecystectomy Additional Past Surgical History / Comment(s): Bilateral rotator cuff surgery. Colonoscopy 2014 she has had multiple colonoscopies in the past. Past Anesthesia/Blood Transfusion Reactions: No Reported Reaction Past Psychological History: No Psychological Hx Reported Smoking Status: Former smoker Past Alcohol Use History: Rare Past Drug Use History: None Reported - Past Family History Father Family Medical History: Cancer Additional Family Medical History / Comment(s): Prostate cancer. Mother Family Medical History: Cancer Additional Family Medical History / Comment(s): Breast cancer in her 80s. <Ranjan Blake - Last Filed: 01/23/19 16:26> General Exam Limitations: no limitations General appearance: alert, in no apparent distress Head exam: Present: atraumatic, normocephalic, normal inspection Eye exam: Present: normal appearance Pupils: Present: normal accommodation ENT exam: Present: normal exam, normal oropharynx, mucous membranes moist, TM's normal bilaterally, normal external ear exam Neck exam: Present: normal inspection, full ROM. Absent: tenderness Respiratory exam: Present: normal lung sounds bilaterally Cardiovascular Exam: Present: regular rate, normal rhythm, normal heart sounds GI/Abdominal exam: Present: soft, normal bowel sounds. Absent: distended, tenderness, guarding, rebound, mass, bruit, pulsatile mass, hernia Extremities exam: Present: normal inspection, full ROM, normal capillary refill, other (+2 ulnar and radial pulses bilaterally.) Back exam: Present: normal inspection (Scarring from previous surgeries in the lumbar region.), full ROM (Limited range of motion with rotation due to pain), tenderness, CVA tenderness (R), paraspinal tenderness (Lower thoracic region). Absent: rash noted Neurological exam: Present: alert, oriented X3, CN II-XII intact, normal gait, reflexes normal Psychiatric exam: Present: normal affect, normal mood Skin exam: Present: warm, dry, intact, normal color <Ranjan Blake - Last Filed: 01/23/19 16:26> Course <Sloan Auguste - Last Filed: 01/23/19 16:37> Vital Signs 01/23/19 14:04 Temperature 97.9 F Pulse Rate 76 Respiratory 18 Rate Blood Pressure 133/69 O2 Sat by Pulse 97 Oximetry - Reevaluation(s) Reevaluation #1: 01/23/19 16:36 PA supervision: I personally a [id number] evaluation the patient did present with complaints of flank pain this after doing some mopping prior to this. She had no dysuria hematuria however a UA was performed did show evidence of a UTI. Patient is awake alert and is agreeable to receiving antibiotics and outpatient treatment. I did discuss the findings with the patient and her . Imaging was unremarkable for acute processes. (Sloan Auguste) Medical Decision Making <Ranjan Blake - Last Filed: 01/23/19 16:26> - Medical Decision Making Patient is a 79-year-old female presenting to emergency Department with a chief complaint of back pain. On exam patient appears to have right paraspinal tenderness in the low thoracic region that appears to be exacerbated with forward flexion right rotation. Right CVA tenderness. Pain reproducible with palpation. No focal deficits. No chest pain shortness of breath with abdominal pain nausea vomiting. No prior history of aneurysms. Not a smoker. No previous cardiac history. No family history of aneurysms. Pulses equal nirmala aterally on the lower and upper extremities. UA is positive for urinary tract infection most likely going to the kidney. Does have elevated white blood white blood count, elevated leukocyte esterase and positive nitrates. Patient will be treated with a single dose of Rocephin in the ED and 10 days of Keflex. Patient advised to drink a lot of fluids. Vitals stable. CT of the thoracic spine shows an old compression fracture at T7 with anterior wedging. No significant changes from old exam. Patient advised to follow-up with primary care. Strict return parameters were thoroughly discussed with patient was understanding and agreeable. Case discussed with physician. (Ranjan Blake) - Lab Data Lab Results 01/23/19 Range/Units 14:49 Urine Color Yellow Urine Appearance Cloudy H (Clear) Urine pH 5.5 (5.0-8.0) Ur Specific Chavies 1.027 (1.001-1.035) Urine Protein Trace H (Negative) Urine Glucose (UA) Negative (Negative) Urine Ketones Negative (Negative) Urine Blood Negative (Negative) Urine Nitrite Positive H (Negative) Urine Bilirubin Negative (Negative) Urine Urobilinogen <2.0 (<2.0) mg/dL Ur Leukocyte Esterase Large H (Negative) Urine RBC 13 H (0-5) /hpf Urine WBC 46 H (0-5) /hpf Ur Squamous Epith Cells 19 H (0-4) /hpf Amorphous Sediment Occasional H (None) /hpf Urine Bacteria Moderate H (None) /hpf Hyaline Casts 2 (0-2) /lpf Urine Mucus Moderate H (None) /hpf Disposition Is patient prescribed a controlled substance at d/c from ED?: No Time of Disposition: 16:04 <Ranjan Blake - Last Filed: 01/23/19 16:26> <Sloan Auguste - Last Filed: 01/23/19 16:37> Clinical Impression: Urinary tract infection, Back pain Disposition: HOME SELF-CARE Condition: Stable Instructions (If sedation given, give patient instructions): Acute Low Back Pain (ED) Additional Instructions: Please take prescribed medication as directed. Please follow up with primary care and drink lots of fluids. Please return to emergency department if symptoms worsen. Prescriptions: Cephalexin [Keflex] 500 mg PO Q6HR #40 cap Referrals: Pedro Luis Anaya MD [Primary Care Provider] - 1-2 days
[2019-01-23] MEDS ORDERED: LIDOCAINE 5% PATCH TOPICAL STA (14:43)
[2019-01-23 15:15] LABS: Amorphous Sediment,Urine Occasional /hpf; Appearance,Urine Cloudy (Clear); Bacteria,Urine Moderate /hpf; Bilirubin,Urine Negative (Negative); Blood,Urine Negative (Negative); Color,Urine Yellow; Glucose,Urine (UA) Negative (Negative); Hyaline Casts,Urine 2 /lpf (0-2); Ketones,Urine Negative (Negative); Leukocyte Esterase,Urine Large (Negative); Mucus,Urine Moderate /hpf; Nitrite,Urine Positive (Negative); PH, Urine 5.5 (5.0-8.0); Protein,Urine Trace (Negative); RBC,Urine 13 /hpf (0-5); Specific Gravity,Urine 1.027 (1.001-1.035); Squamous Epithelial Cell,Urine 19 /hpf (0-4); Urobilinogen,Urine <2.0 mg/dL (<2.0); WBC,Urine 46 /hpf (0-5)
[2019-01-23] MEDS ORDERED: cefTRIAXone 1,000 MG VIAL (IM USE) IM STA (15:57)
--- NOTE | 2019-01-23 16:10 | CT ---
EXAMINATION TYPE: CT thoracic spine wo con DATE OF EXAM: 01/23/2019 COMPARISON: 09/10/2015 HISTORY: Thoracic back pain. Pt denies injury. Pain started [address] DLP: 1337.6 mGycm Automated exposure control for dose reduction was used. FINDINGS: Multiple axial sections were obtained from C7 to L1 vertebra without contrast. There is mild biconcave deformity of the vertebral bodies at T10 and T9, T8 T7 vertebra. There is als o similar change at T5 T4 and T3. There is some anterior wedging of T7 with approximate 15% loss of h eight. There is osteopenia. There is no thoracic paraspinal mass. The posterior elements are intact. I see no focal bone destruction. There is no sign of thoracic spinal stenosis. There is anterior fusi on surgery at C6-7. IMPRESSION: MULTIPLE MILD THORACIC COMPRESSION FRACTURES CONSISTENT WITH OSTEOMALACIA. THERE IS OSTEOPOROTIC TYPE COMPRESSION FRACTURE T7 WITH ANTERIOR WEDGING. SPINE APPEARS NOT SIGNIFICANTLY DIFFERENT THAN OLD EX AM.
[2019-01-23 16:46] VITALS: BP 148/78; PULSE 84; RESP 16; TEMP 97.6
== END 2019-01-23 16:44 | disposition home or self-care (01) ==
LOC: EC 14:03
DX: N39.0 Urinary tract infection, site not specified (principal); E11.9 Type 2 diabetes mellitus without complications; E78.5 Hyperlipidemia, unspecified; E03.9 Hypothyroidism, unspecified; Z79.890 Hormone replacement therapy; Z79.84 Long term (current) use of oral hypoglycemic drugs; Z79.1 Long term (current) use of non-steroidal anti-inflammatories (NSAID); Z79.899 Other long term (current) drug therapy; Z91.09 Other allergy status, other than to drugs and biological substances; Z91.018 Allergy to other foods; Z88.2 Allergy status to sulfonamides; Z87.891 Personal history of nicotine dependence; Z85.828 Personal history of other malignant neoplasm of skin
CPT/HCPCS: 81001; 72128; 99284; 96372; J0696

== ENCOUNTER → 2020-05-09 | Outpatient (CLI) | payer MEDICARE ==
[2020-05-09 11:50] VITALS: BP 124/74; PULSE 62; RESP 18; TEMP 97.7
--- NOTE | 2020-05-09 13:17 | P.HPOB ---
History of Present Illness H&P Date: 05/09/20 Chief Complaint: The patient is here for her routine gynecologic exam and ma mmogram. This is an 80-year-old with an LMP of 1989. The patient is without gynecologic complaints and denies postmenopausal bleeding. She has had issues with urinary incontinence in the past. She has been seeing a doctor at [facility] who gives injections in the area of the bladder and she has had this done about every 3 years recently. Review of Systems She has lost about 11 pounds over the past 1-1/2 years. She denies respiratory, cardiac and G.I. problems. She denies maltreatment or problems with falling. : Occasional urinary leakage. She sees somebody at [facility] for injections about every 3 years which helps with her incontinence. Past Medical History Past Medical History: Cancer, Diabetes Mellitus, Hyperlipidemia, Osteoarthritis (OA), Thyroid Disorder Additional Past Medical History / Comment(s): Type II diabetes. Hypothyroidism. Basal cell skin cancer. She had a problem with bulimia in her 40s. 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 History of Any Multi-Drug Resistant Organisms: None Reported Past Surgical History: Back Surgery, Cholecystectomy Additional Past Surgical History / Comment(s): Bilateral rotator cuff surgery. Colonoscopy 2014 she has had multiple colonoscopies in the past. Past Anesthesia/Blood Transfusion Reactions: No Reported Reaction Past Psychological History: No Psychological Hx Reported Smoking Status: Former smoker Past Alcohol Use History: Rare (4 per year) Additional Past Alcohol Use History / Comment(s): Quit smoking in 1969. Past Drug Use History: None Reported Additional History: She has been since 1966 and is retired. - Past Family History Father Family Medical History: Cancer Additional Family Medical History / Comment(s): Prostate cancer. Mother Family Medical History: Cancer Additional Family Medical History / Comment(s): Breast cancer in her 80s. Brother(s) Family Medical History: Cancer Additional Family Medical History / Comment(s): Prostate cancer. Medications and Allergies Home Medications Medication Instructions Recorded Confirmed Type Levothyroxine Sodium [Synthroid] 125 mcg PO DAILY 05/22/15 05/09/20 History Simvastatin [Zocor] 40 mg PO DAILY 05/22/15 05/09/20 History Triamterene-Hctz 37.5-25Mg 0.5 tab PO DAILY 05/22/15 05/09/20 History [Maxzide 37.5-25] Ascorbic Acid [Vitamin C] 500 mg PO DAILY 09/21/18 05/09/20 History Cholecalciferol [Vitamin D3 (25 1,000 unit PO DAILY 09/21/18 05/09/20 History Mcg = 1000 Iu)] Cyanocobalamin [Vitamin B-12] 500 mcg PO DAILY 09/21/18 05/09/20 History Naproxen Sodium [Aleve] 220 mg PO DAILY 09/21/18 05/09/20 History Vit C/E/Zn/Coppr/Lutein/Zeaxan 1 each PO DAILY 05/09/20 05/09/20 History [Preservision Areds 2 Softgel] Zinc 50 mg PO DAILY 05/09/20 05/09/20 History Allergies Allergy/AdvReac Type Severity Reaction Status Date / Time cat dander Allergy Rash/Hives Verified 05/09/20 11:50 mushroom Allergy Rash/Hives Verified 05/09/20 11:50 Sulfa (Sulfonamide Allergy Rash/Hives Verified 05/09/20 11:50 Antibiotics) tree and shrub pollen Allergy Rash/Hives Verified 05/09/20 11:50 Exam Vital Signs Temp Pulse Resp BP Pulse Ox 05/09/20 11:44 97.7 F 62 18 124/74 96 Intake and Output 05/08/20 05/09/20 05/09/20 22:59 06:59 14:59 Other: Weight 95.708 kg Height 5 feet 6 inches, weight 211 pounds, BMI 34.1. This is a well-developed well-nourished white female who is alert and oriented times 3 in no acute distress. HEENT: Within normal limits. NECK: Supple without mass or thyromegaly. CHEST AND LUNGS: Clear to auscultation. HEART: Regular rate and rhythm. BREASTS: Are without mass or discharge. There is bilateral nipple inversion and the patient states she has had this for her entire life. There is a brown mole at the 1 o'clock position of the left breast at the border of the areola and measures 10 x 19 mm which is unchanged from her previous exam. AXILLARY EXAM: Negative for adenopathy. BACK: Negative for CVA tenderness. ABDOMEN: Soft, nontender, without palpable masses. PELVIC EXAM: Normal external genitalia with mild to moderate atrophy. Cervix and vagina appear normal with mild to moderate atrophy. There is no unusual discharge. There is no evidence of prolapse. The uterus is midposition, nongravid size and nontender. There are no palpable adnexal masses or tenderness. RECTAL EXAM: Rectovaginal exam is negative for mass or tenderness and is negative for occult blood. EXTREMITIES: Nontender. IMPRESSION: 1. 80-year-old menopausal female with normal gynecologic exam. 2. Stable mole on the left breast measuring approximately 10 x 19 mm. 3. History of osteopenia PLAN: 1. Pap smears have been discontinued. After reviewing Pap smear records from [facility] and after having an negative Pap smear on 09/21/2018, she has been adequately screened and has not had history of cervical neoplasia. 2. Self breast awareness was discussed with the patient. 3. Screening mammogram was done today. 4. Osteoporosis prevention was discussed. I have stressed the importance of adequate calcium, vitamin D and regular exercise. Recommended amounts of calcium and vitamin D were also discussed. I have recommended repeating bone density testing since her last one was in 2018. The order slip was given to the patient for this. 5. She did receive her flu shot last fall and has received 1 of 2 Covid vaccinations. She will be getting the second one in the near future. 6. She is due for a colonoscopy and she will be speaking with her primary care physician regarding this. 7. She has a claims counsel and have recommended that she have yearly skin exams and she was also instructed to show the claims counsel a mole on the left breast. 8. She was advised to return in one year for her annual well woman exam.
--- NOTE | 2020-05-14 10:08 | MM ---
Reason for exam: screening (asymptomatic). Last mammogram was performed 1 year and 8 months ago. History: Patient is postmenopausal and has history of other cancer at age 72. Family history of breast cancer in mother. Took estrogen for 14 years. Took progesterone for 14 years. Physical Findings: A clinical breast exam by your physician is recommended on an annual basis and results should be correlated with mammographic findings. MG 3D Screening Mammo W/Cad Bilateral CC and MLO view(s) were taken. Prior study comparison: September 21, 2018, bilateral MG 3d screening mammo w/cad. June 02, 2017, bilateral MG 3d screening mammo w/cad. There are scattered fibroglandular densities. Inverted nipples redemonstrated bilaterally. Stable scattered lucent centered benign calcifications. No significant changes when compared with prior studies. ASSESSMENT: Benign, BI-RAD 2 RECOMMENDATION: Routine screening mammogram of both breasts in 1 year.
== END ==
LOC: WWCWWP 11:22
PROVIDERS: ATTEND Obstetrics & Gynecology
DX: Z01.419 Encounter for gynecological examination (general) (routine) without abnormal findings (principal); D22.5 Melanocytic nevi of trunk; M85.80 Other specified disorders of bone density and structure, unspecified site; E11.9 Type 2 diabetes mellitus without complications; E03.9 Hypothyroidism, unspecified; E78.5 Hyperlipidemia, unspecified; Z87.891 Personal history of nicotine dependence
CPT/HCPCS: 77063; 77067

== ENCOUNTER → 2021-06-11 | Outpatient (CLI) | payer MEDICARE ==
[2021-06-11 13:42] VITALS: BP 128/76; PULSE 82; RESP 16; TEMP 98.1
--- NOTE | 2021-06-11 14:32 | P.HPOB ---
History of Present Illness H&P Date: 06/11/21 Chief Complaint: The patient is here for her routine gynecologic exam and ma mmogram. This is an 81-year-old with an LMP of 1989. The patient is without gynecologic complaints. She has had issues with frequent urinary tract infections over the past 6 months and saw a urologist because of this. Estradiol vaginal cream was recommended for the frequent UTIs. She recently just started this last month and is requesting a prescription for this. Review of Systems The patient has gained 8 pounds over the last year. She denies respiratory, cardiac, or G.I. problems. Past Medical History Past Medical History: Cancer, Diabetes Mellitus, Hyperlipidemia, Osteoarthritis (OA), Thyroid Disorder Additional Past Medical History / Comment(s): Type II diabetes. Hypothyroidism. Basal cell skin cancer. She had a problem with bulimia in her 40s. Right shoulder problems. 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 History of Any Multi-Drug Resistant Organisms: None Reported Past Surgical History: Back Surgery, Cholecystectomy Additional Past Surgical History / Comment(s): Bilateral rotator cuff surgery. Colonoscopy 2014 she has had multiple colonoscopies in the past. Past Anesthesia/Blood Transfusion Reactions: No Reported Reaction Past Psychological History: No Psychological Hx Reported Smoking Status: Former smoker Past Alcohol Use History: Rare (5 per year) Additional Past Alcohol Use History / Comment(s): Quit smoking in 1969. Past Drug Use History: None Reported Additional History: She has been since 1966 and is not sexually active. She is retired. - Past Family History Father Family Medical History: Cancer Additional Family Medical History / Comment(s): Prostate cancer. Mother Family Medical History: Cancer Additional Family Medical History / Comment(s): Breast cancer in her 80s. Brother(s) Family Medical History: Cancer Additional Family Medical History / Comment(s): Prostate cancer. Medications and Allergies Home Medications Medication Instructions Recorded Confirmed Type Levothyroxine Sodium [Synthroid] 125 mcg PO DAILY 05/22/15 06/11/21 History Simvastatin [Zocor] 40 mg PO DAILY 05/22/15 06/11/21 History Triamterene-Hctz 37.5-25Mg 0.5 tab PO DAILY 05/22/15 06/11/21 History [Maxzide 37.5-25] Ascorbic Acid [Vitamin C] 500 mg PO DAILY 09/21/18 06/11/21 History Cholecalciferol [Vitamin D3 (25 1,000 unit PO DAILY 09/21/18 06/11/21 History Mcg = 1000 Iu)] Cyanocobalamin [Vitamin B-12] 500 mcg PO DAILY 09/21/18 06/11/21 History Naproxen Sodium [Aleve] 220 mg PO DAILY 09/21/18 06/11/21 History Vit C/E/Zn/Coppr/Lutein/Zeaxan 1 each PO DAILY 05/09/20 06/11/21 History [Preservision Areds 2 Softgel] Zinc 50 mg PO DAILY 05/09/20 06/11/21 History Allergies Allergy/AdvReac Type Severity Reaction Status Date / Time cat dander Allergy Rash/Hives Verified 06/11/21 13:35 mushroom Allergy Rash/Hives Verified 06/11/21 13:35 Sulfa (Sulfonamide Allergy Rash/Hives Verified 06/11/21 13:35 Antibiotics) tree and shrub pollen Allergy Rash/Hives Verified 06/11/21 13:35 Exam Vital Signs Temp Pulse Resp BP Pulse Ox 06/11/21 13:38 98.1 F 82 16 128/76 95 Intake and Output 06/10/21 06/11/21 06/11/21 22:59 06:59 14:59 Other: Weight 99.337 kg Height 5 feet 8 inches, weight 219 pounds, BMI 33.3. This is a well-developed well-nourished white female who is alert and oriented times 3 in no acute distress. HEENT: Within normal limits. NECK: Supple without mass or thyromegaly. CHEST AND LUNGS: Clear to auscultation. HEART: Regular rate and rhythm. BREASTS: Are without mass or discharge. There is bilateral nipple inversion. The patient states her nipples have been inverted for many years. There is a brown mole at the 1 o'clock position of the left breast at the border of the areola and measures 10 x 20 mm which is stable from her previous exam. AXILLARY EXAM: Negative for adenopathy. BACK: Negative for CVA tenderness. ABDOMEN: Soft, nontender, without palpable masses. PELVIC EXAM: Normal external genitalia with mild atrophy. Cervix and vagina appear normal mild atrophy. There is no unusual discharge. There is no evidence of prolapse. The uterus is midposition, nongravid size and nontender. There are no palpable adnexal masses or tenderness. RECTAL EXAM: Rectovaginal exam is negative for mass or tenderness and is negative for occult blood. EXTREMITIES: Nontender. IMPRESSION: 1. 81-year-old menopausal female with normal gynecologic exam. 2. Stable mole on the left breast measuring approximately 2 x 1 cm. 3. History of osteopenia. PLAN: 1. Pap smears have been discontinued. 2. Self breast awareness was discussed with the patient. We have also discussed symptoms associated with inflammatory breast cancer. 3. Screening mammogram will be done today. 4. Osteoporosis prevention was discussed. I have stressed the importance of adequate calcium, vitamin D and regular exercise. Recommended amounts of calcium and vitamin D were also discussed. I have recommended bone density testing since her last one was in 2018. The order slip was given to the patient for this. 5. She will continue to use estradiol vaginal cream 1 g into the vagina 2 times weekly for history of urinary tract infections. The electronic prescription will be sent to [facility] pharmacy in [facility]. 6. She has completed her Covid vaccination series and did receive a booster. 7. I have recommended that she see her rn digestive, Dr. Navarro, on a regular basis. I recommended that she see him yearly so he can evaluate her scan and the left breast mole. 8. She was advised to return in one year for her annual well woman exam.
--- NOTE | 2021-06-12 11:36 | MM ---
Reason for exam: screening (asymptomatic). Last mammogram was performed 1 year and 1 month ago. History: Patient is postmenopausal and has history of other cancer at age 72. Family history of breast cancer in mother. Took estrogen for 14 years. Took progesterone for 14 years. Taking other hormone beginning at age 79. Physical Findings: A clinical breast exam by your physician is recommended on an annual basis and results should be correlated with mammographic findings. MG 3D Screening Mammo W/Cad Bilateral CC and MLO view(s) were taken. Prior study comparison: May 09, 2020, bilateral MG 3d screening mammo w/cad. September 21, 2018, bilateral MG 3d screening mammo w/cad. The breast tissue is heterogeneously dense. This may lower the sensitivity of mammography. Stable benign calcifications. There is no discrete abnormality. No significant changes when compared with prior studies. ASSESSMENT: Benign, BI-RAD 2 RECOMMENDATION: Routine screening mammogram of both breasts in 1 year.
== END ==
LOC: WWCWWP 13:19
PROVIDERS: ATTEND Obstetrics & Gynecology
DX: Z12.31 Encounter for screening mammogram for malignant neoplasm of breast (principal); D22.5 Melanocytic nevi of trunk; E11.9 Type 2 diabetes mellitus without complications; E78.5 Hyperlipidemia, unspecified; M19.90 Unspecified osteoarthritis, unspecified site; E03.9 Hypothyroidism, unspecified; Z79.890 Hormone replacement therapy; Z87.891 Personal history of nicotine dependence; Z87.39 Personal history of other diseases of the musculoskeletal system and connective tissue; Z91.09 Other allergy status, other than to drugs and biological substances; Z91.018 Allergy to other foods; Z88.2 Allergy status to sulfonamides
CPT/HCPCS: 77063; 77067

== ENCOUNTER → 2021-12-30 | Outpatient (CLI) | payer MEDICARE | END | disposition home or self-care (01) | LOC: LABWHC1 14:03 | PROVIDERS: ATTEND Family Medicine | DX: Z01.818 Encounter for other preprocedural examination (principal) | CPT/HCPCS: 36415; 93005 ==

== ENCOUNTER 2022-03-04 13:55 | Emergency (ER) | payer MEDICARE ==
[2022-03-04 14:02] VITALS: TEMP 97
[2022-03-04] MEDS ORDERED: HYDROcodone/APAP 5-325MG 1 EACH TAB PO STA (14:15)
--- NOTE | 2022-03-04 14:22 | ED ---
Upper Extremity HPI - General Chief Complaint: Extremity Injury, Upper Stated Complaint: fall, lt shoulder injury Time Seen by Provider: 03/04/22 14:08 Source: patient, family Mode of arrival: wheelchair Limitations: no limitations - History of Present Illness Initial Comments: Pleasant well-appearing 82-year-old female presents to the emergency room with complaints of left shoulder pain. Patient states that she was sitting on the side of the bed and fell off landing on her left shoulder on Thursday. She has had increased pain since. She states she is recovering from total right shoulder surgery at [place] on January 21. She takes tramadol and oxycodone for that pain which has not been providing relief today. Fall was witness and she did not hit her head, has no other injuries. MD Complaint: Injury to:: left, shoulder -: days(s) (2) Severity scale (1-10): 8 Associated Symptoms: denies other symptoms - Related Data Home Medications Medication Instructions Recorded Confirmed Levothyroxine Sodium [Synthroid] 125 mcg PO DAILY 05/22/15 06/11/21 Simvastatin [Zocor] 40 mg PO DAILY 05/22/15 06/11/21 Triamterene-Hctz 37.5-25Mg 0.5 tab PO DAILY 05/22/15 06/11/21 [Maxzide 37.5-25] Ascorbic Acid [Vitamin C] 500 mg PO DAILY 09/21/18 06/11/21 Cholecalciferol [Vitamin D3 (25 1,000 unit PO DAILY 09/21/18 06/11/21 Mcg = 1000 Iu)] Cyanocobalamin [Vitamin B-12] 500 mcg PO DAILY 09/21/18 06/11/21 Naproxen Sodium [Aleve] 220 mg PO DAILY 09/21/18 06/11/21 Vit C/E/Zn/Coppr/Lutein/Zeaxan 1 each PO DAILY 05/09/20 06/11/21 [Preservision Areds 2 Softgel] Zinc 50 mg PO DAILY 05/09/20 06/11/21 Previous Rx's Medication Instructions Recorded Estradiol Cream [Estrace Cream 1 gm VAGINAL DIRECTED #42.5 gm 06/11/21 0.01%] Allergies Allergy/AdvReac Type Severity Reaction Status Date / Time cat dander Allergy Rash/Hives Verified 06/11/21 13:35 mushroom Allergy Rash/Hives Verified 06/11/21 13:35 Sulfa (Sulfonamide Allergy Rash/Hives Verified 06/11/21 13:35 Antibiotics) tree and shrub pollen Allergy Rash/Hives Verified 06/11/21 13:35 Review of Systems ROS Statement: Those systems with pertinent positive or pertinent negative responses have been documented in the HPI. ROS Other: All systems not noted in ROS Statement are negative. Past Medical History Past Medical History: Cancer, Diabetes Mellitus, Hyperlipidemia, Osteoarthritis (OA), Thyroid Disorder Additional Past Medical History / Comment(s): Type II diabetes. Hypothyroidism. Basal cell skin cancer. She had a problem with bulimia in her 40s. Right shoulder problems. 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 History of Any Multi-Drug Resistant Organisms: None Reported Past Surgical History: Back Surgery, Cholecystectomy, Joint Replacement, Orthopedic Surgery Additional Past Surgical History / Comment(s): Bilateral rotator cuff surgery. Colonoscopy 2014 she has had multiple colonoscopies in the past. Past Anesthesia/Blood Transfusion Reactions: No Reported Reaction Past Psychological History: No Psychological Hx Reported Smoking Status: Former smoker Past Alcohol Use History: Rare Past Drug Use History: None Reported - Past Family History Father Family Medical History: Cancer Additional Family Medical History / Comment(s): Prostate cancer. Mother Family Medical History: Cancer Additional Family Medical History / Comment(s): Breast cancer in her 80s. Brother(s) Family Medical History: Cancer Additional Family Medical History / Comment(s): Prostate cancer. General Exam Limitations: no limitations General appearance: alert, in no apparent distress Head exam: Present: atraumatic Eye exam: Present: normal appearance. Absent: scleral icterus, conjunctival injection, periorbital swelling, periorbital tenderness Neck exam: Absent: meningismus Respiratory exam: Absent: respiratory distress, accessory muscle use Cardiovascular Exam: Present: regular rate Left Shoulder Exam: Present: tenderness. Absent: full ROM, deformity, tenderness over AC joint Upper Arm exam: Absent: tenderness Elbow exam: Present: full ROM. Absent: tenderness Forearm Wrist exam: Present: full ROM. Absent: tenderness Hand Wrist exam: Present: full ROM. Absent: tenderness Neuro motor exam: Present: wrist extension intact, thumb opposition intact, thumb IP flexion intact, thumb adduction intact, fingers 2-5 abduction intact Vascular: Present: normal capillary refill, radial pulse. Absent: vascular compromise Neurological exam: Present: alert, oriented X3 Psychiatric exam: Present: normal affect, normal mood Skin exam: Present: warm, dry, normal color. Absent: cyanosis, diaphoretic, petechiae, pallor Course Vital Signs 03/04/22 13:59 Temperature 97 F L Pulse Rate 76 Respiratory 16 Rate Blood Pressure 133/79 O2 Sat by Pulse 97 Oximetry Medical Decision Making - Medical Decision Making X-ray of the left shoulder and clavicle interpreted by me shows no acute fracture. Radiologist interpretation mild before meals joint osteoarthritis. Old healed posttraumatic deformity of the proximal left humerus surgical neck region. No acute fracture seen. Patient will be placed in a sling and instructed to follow up with orthopedics. She is currently prescribed [place] and Ultram and directed to continue these medications for pain as needed. Case discussed with Dr. Connolly Was pt. sent in by a medical professional or institution? @ -No Did you speak to anyone other than the patient for history? @ -No Did you review nursing and triage notes? @ -Yes I agree Were old charts reviewed? @ -No Differential Diagnosis? @ -Fracture, shoulder strain, rotator cuff injury, dislocation X-rays interpreted by me (1pt min.)? @ -Yes see above What testing was considered but not performed? (CT, X-rays, U/S, labs)? Why? @ No What meds were considered but not given? Why? @ -No Did you discuss the management of the patient with other professionals? @ -No Did you reconcile home meds? @ -No Was smoking cessation discussed for >3mins.? @ -No Was critical care preformed (if so, how long)? @ -No Were there social determinants of health that impacted care today? How? (Homelessness, low income, unemployed, alcoholism, drug addiction, transportation, low edu. Level, literacy, decrease access to med. care, retirement, rehab)? @ -None Was there de-escalation of care discussed even if they declined? (Discuss DNR or withdrawal of care, Hospice)? @ -No What co-morbidities impacted this encounter? (DM, HTN, Smoking, COPD, CAD, Cancer, CVA, Hep., AIDS, mental health diagnosis, sleep apnea, morbid obesity)? @ -Osteoarthritis, diabetes Was patient admitted / discharged? @ -Discharged Undiagnosed new problem with uncertain prognosis? @ -[none] Drug Therapy requiring intensive monitoring for toxicity (Heparin, Nitro, Insulin, Cardizem)? @ -No Were any procedures done? @ -No Diagnosis/symptom? @ -Shoulder strain Acute, or Chronic, or Acute on Chronic? @ -Acute Uncomplicated (without systemic symptoms) or Complicated (systemic symptoms)? @ -[default] Side effects of treatment? @ -[none] Exacerbation, Progression, or Severe Exacerbation] @ -[no] Poses a threat to life or bodily function? @ -[no] Disposition Clinical Impression: Shoulder pain, left Disposition: HOME SELF-CARE Condition: Good Instructions (If sedation given, give patient instructions): How to Use a Sling (ED), Shoulder Pain (ED) Additional Instructions: Continue previously prescribed pain medications. Follow-up with orthopedic doctor and wear sling for comfort. Is patient prescribed a controlled substance at d/c from ED?: No Referrals: Nick Leigh MD [Primary Care Provider] - 1-2 days Rodolfo Nuñez DO [Doctor of Osteopathic Medicine] - 1-2 days Time of Disposition: 15:04
--- NOTE | 2022-03-04 14:57 | XR ---
EXAMINATION TYPE: XR shoulder complete 3 views LT, XR clavicle 2 views LT DATE OF EXAM: 03/04/2022 Comparison: None Clinical History: 82-year-old female pain after fall Findings: Left shoulder: Mild degenerative change AC joint. There appears to be a chronic healed fracture deformity of the pro ximal humeral surgical neck. No discrete fracture line is identified. No subluxation or dislocation s een. Left clavicle: No acute fracture seen. ACDF hardware. Impression: Left shoulder left clavicle: Mild AC joint OA. Old healed posttraumatic deformity of the proximal lef t humerus/surgical neck region. No acute fracture is seen.
[2022-03-04 15:54] VITALS: BP 132/78; PULSE 80; RESP 18
== END 2022-03-04 15:34 | disposition home or self-care (01) ==
LOC: EC 13:55
DX: M25.512 Pain in left shoulder (principal); E11.9 Type 2 diabetes mellitus without complications; E07.9 Disorder of thyroid, unspecified; M19.90 Unspecified osteoarthritis, unspecified site; Z79.890 Hormone replacement therapy; Z87.891 Personal history of nicotine dependence; Z88.2 Allergy status to sulfonamides; Z88.8 Allergy status to other drugs, medicaments and biological substances; Z79.899 Other long term (current) drug therapy; W06.XXXA Fall from bed, initial encounter; Y92.009 Unspecified place in unspecified non-institutional (private) residence as the place of occurrence of the external cause
CPT/HCPCS: 99283

== ENCOUNTER 2022-03-07 02:15 | Observation (INO) | payer MEDICARE, OTHER ==
[2022-03-07] MEDS ORDERED: SODIUM CHLORIDE 0.9% 1,000 ML IV STA ×2 (02:48)
[2022-03-07] MEDS ORDERED: KETOROLAC 15 MG/ML 1 ML VIAL IVP STA (02:49)
[2022-03-07] MEDS ORDERED: HYDROmorphone 1 MG/ML 1 ML SYRINGE IVP STA (02:49)
--- NOTE | 2022-03-07 02:50 | ED ---
Recheck HPI - General Chief Complaint: Extremity Injury, Lower Stated Complaint: Right foot pain Time Seen by Provider: 03/07/22 02:25 Source: patient, EMS, RN notes reviewed, old records reviewed Mode of arrival: EMS Limitations: no limitations - History of Present Illness Initial Comments: This is an 82-year-old female to the emergency department for evaluation. Patient complaining of multiple complaints left shoulder pain left jaw pain recent right shoulder surgery with right shoulder pain severe right foot pain history for pain is debilitating to the point where she cannot walk. Patient did have recent fall where she fell off the edge of the bed getting dressed she fell into a dresser and has since had left foot pain. No other injury or trauma noted. Today patient was unable to walk on her left foot. She presents to ER today for fear of inability to ambulate in the ambulance bathroom MD Complaint: medication refill request, other (Severe pain) -: days(s) Returns Today for: persistent/worsening pain related to initial visit Symptoms Since Prior Visit: worsening pain Associated Symptoms: none Treatments Prior to Arrival: Given Pain Meds on - Related Data Home Medications Medication Instructions Recorded Confirmed Levothyroxine Sodium [Synthroid] 125 mcg PO DAILY 05/22/15 06/11/21 Simvastatin [Zocor] 40 mg PO DAILY 05/22/15 06/11/21 Triamterene-Hctz 37.5-25Mg 0.5 tab PO DAILY 05/22/15 06/11/21 [Maxzide 37.5-25] Ascorbic Acid [Vitamin C] 500 mg PO DAILY 09/21/18 06/11/21 Cholecalciferol [Vitamin D3 (25 1,000 unit PO DAILY 09/21/18 06/11/21 Mcg = 1000 Iu)] Cyanocobalamin [Vitamin B-12] 500 mcg PO DAILY 09/21/18 06/11/21 Naproxen Sodium [Aleve] 220 mg PO DAILY 09/21/18 06/11/21 Vit C/E/Zn/Coppr/Lutein/Zeaxan 1 each PO DAILY 05/09/20 06/11/21 [Preservision Areds 2 Softgel] Zinc 50 mg PO DAILY 05/09/20 06/11/21 Previous Rx's Medication Instructions Recorded Estradiol Cream [Estrace Cream 1 gm VAGINAL DIRECTED #42.5 gm 06/11/21 0.01%] Allergies Allergy/AdvReac Type Severity Reaction Status Date / Time cat dander Allergy Rash/Hives Verified 06/11/21 13:35 mushroom Allergy Rash/Hives Verified 06/11/21 13:35 Sulfa (Sulfonamide Allergy Rash/Hives Verified 06/11/21 13:35 Antibiotics) tree and shrub pollen Allergy Rash/Hives Verified 06/11/21 13:35 Review of Systems ROS Statement: Those systems with pertinent positive or pertinent negative responses have been documented in the HPI. ROS Other: All systems not noted in ROS Statement are negative. Past Medical History Past Medical History: Cancer, Diabetes Mellitus, Hyperlipidemia, Osteoarthritis (OA), Thyroid Disorder Additional Past Medical History / Comment(s): Type II diabetes. Hypothyroidism. Basal cell skin cancer. She had a problem with bulimia in her 40s. Right shoulder problems. 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 History of Any Multi-Drug Resistant Organisms: None Reported Past Surgical History: Back Surgery, Cholecystectomy, Joint Replacement, Orthopedic Surgery Additional Past Surgical History / Comment(s): Bilateral rotator cuff surgery. Colonoscopy 2014 she has had multiple colonoscopies in the past. Past Anesthesia/Blood Transfusion Reactions: No Reported Reaction Past Psychological History: No Psychological Hx Reported Smoking Status: Former smoker Past Alcohol Use History: Rare Past Drug Use History: None Reported - Past Family History Father Family Medical History: Cancer Additional Family Medical History / Comment(s): Prostate cancer. Mother Family Medical History: Cancer Additional Family Medical History / Comment(s): Breast cancer in her 80s. Brother(s) Family Medical History: Cancer Additional Family Medical History / Comment(s): Prostate cancer. General Exam - General Exam Comments Initial Comments: Patient has severe tenderness to multiple areas including right foot left shoulder right shoulder left jaw Severe tenderness to touch Limitations: no limitations General appearance: alert, in no apparent distress Head exam: Present: atraumatic, normocephalic, normal inspection Eye exam: Present: normal appearance, PERRL, EOMI. Absent: scleral icterus, conjunctival injection, periorbital swelling ENT exam: Present: normal exam, mucous membranes moist Neck exam: Present: normal inspection. Absent: tenderness, meningismus, lymphadenopathy Respiratory exam: Present: normal lung sounds bilaterally. Absent: respiratory distress, wheezes, rales, rhonchi, stridor Cardiovascular Exam: Present: regular rate, normal rhythm, normal heart sounds. Absent: systolic murmur, diastolic murmur, rubs, gallop, clicks GI/Abdominal exam: Present: soft, normal bowel sounds. Absent: distended, tenderness, guarding, rebound, rigid Extremities exam: Present: normal inspection, full ROM, normal capillary refill. Absent: tenderness, pedal edema, joint swelling, calf tenderness Back exam: Present: normal inspection Neurological exam: Present: alert, oriented X3, CN II-XII intact Psychiatric exam: Present: normal affect, normal mood Skin exam: Present: warm, dry, intact, normal color. Absent: rash Course Vital Signs 03/07/22 02:18 Temperature 98.0 F Pulse Rate 77 Respiratory 18 Rate Blood Pressure 157/82 O2 Sat by Pulse 96 Oximetry - Reevaluation(s) Reevaluation #1: 03/07/22 02:59 Medical records reviewed Reevaluation #5: 03/07/22 02:59 Was pt. sent in by a medical professional or institution? @ -no Did you speak to anyone other than the patient for history? @ -no Did you review nursing and triage notes? @ -agree Were old charts reviewed? @ -no Differential Diagnosis? @ -no EKG interpreted by me (3pts min.)? @ -[none] X-rays interpreted by me (1pt min.)? @ -[none] CT interpreted by me (1pt min.)? @ -[none] U/S interpreted by me (1pt. min.)? @ -[none] What testing was considered but not performed? (CT, X-rays, U/S, labs)? Why? @ no What meds were considered but not given? Why? @ -[none] Did you discuss the management of the patient with other professionals? @ -no Did you reconcile home meds? @ -[none] Was smoking cessation discussed for >3mins.? @ -[none] Was critical care preformed (if so, how long)? @ -no Were there social determinants of health that impacted care today? How? (Homelessness, low income, unemployed, alcoholism, drug addiction, transportation, low edu. Level, literacy, decrease access to med. care, intermediate, rehab)? @ -no Was there de-escalation of care discussed even if they declined? (Discuss DNR or withdrawal of care, Hospice)? @ -no What co-morbidities impacted this encounter? (DM, HTN, Smoking, COPD, CAD, Cance r, CVA, Hep., AIDS, mental health diagnosis, sleep apnea, morbid obesity)? @ -no Was patient admitted / discharged? @ -admit Undiagnosed new problem with uncertain prognosis? @ -[none] Drug Therapy requiring intensive monitoring for toxicity (Heparin, Nitro, Insulin, Cardizem)? @ -[none] Were any procedures done? @ -[none] Diagnosis/symptom? @ -[default] Acute, or Chronic, or Acute on Chronic? @ -[default] Uncomplicated (without systemic symptoms) or Complicated (systemic symptoms)? @ -[default] Side effects of treatment? @ -[none] Exacerbation, Progression, or Severe Exacerbation] @ -[no] Poses a threat to life or bodily function? @ -[no] 03/07/22 04:19 - Consultations Consultation #1: Spoke with admitting physicians will admit this patient Medical Decision Making - Medical Decision Making 82 female DF for evaluation, multiple surgeries in her life recent right shoulder surgery severe left shoulder pain left jaw pain right foot pain generalized body aches and pains. Patient is unable to ambulate will admit for debility and pain control - Lab Data Result diagrams: 03/07/22 03:05 03/07/22 03:05 Lab Results 03/07/22 03/07/22 03/07/22 Range/Units 03:05 03:05 03:05 WBC 12.1 H (3.8-10.6) k/uL RBC 4.61 (3.80-5.40) m/uL Hgb 14.2 (11.4-16.0) gm/dL Hct 43.6 (34.0-46.0) % MCV 94.7 (80.0-100.0) fL MCH 30.8 (25.0-35.0) pg MCHC 32.5 (31.0-37.0) g/dL RDW 12.5 (11.5-15.5) % Plt Count 207 (150-450) k/uL MPV 7.5 Neutrophils % 86 % Lymphocytes % 7 % Monocytes % 4 % Eosinophils % 1 % Basophils % 0 % Neutrophils # 10.4 H (1.3-7.7) k/uL Lymphocytes # 0.9 L (1.0-4.8) k/uL Monocytes # 0.5 (0-1.0) k/uL Eosinophils # 0.1 (0-0.7) k/uL Basophils # 0.0 (0-0.2) k/uL PT 10.3 (9.0-12.0) sec INR 1.0 (<1.2) APTT 20.6 L (22.0-30.0) sec Sodium 138 (137-145) mmol/L Potassium 4.3 (3.5-5.1) mmol/L Chloride 103 (98-107) mmol/L Carbon Dioxide 24 (22-30) mmol/L Anion Gap 11 mmol/L BUN 19 H (7-17) mg/dL Creatinine 0.55 (0.52-1.04) mg/dL Est GFR (CKD-EPI)AfAm >90 (>60 ml/min/1.73 sqM) Est GFR (CKD-EPI)NonAf 87 (>60 ml/min/1.73 sqM) Glucose 216 H (74-99) mg/dL Calcium 9.6 (8.4-10.2) mg/dL Phosphorus 3.4 (2.5-4.5) mg/dL Magnesium 1.8 (1.6-2.3) mg/dL Total Bilirubin 0.7 (0.2-1.3) mg/dL AST 46 H (14-36) U/L ALT 77 H (4-34) U/L Alkaline Phosphatase 175 H (38-126) U/L Troponin I (0.000-0.034) ng/mL NT-Pro-B Natriuret Pep pg/mL Total Protein 7.3 (6.3-8.2) g/dL Albumin 4.1 (3.5-5.0) g/dL 03/07/22 03/07/22 Range/Units 03:05 03:05 WBC (3.8-10.6) k/uL RBC (3.80-5.40) m/uL Hgb (11.4-16.0) gm/dL Hct (34.0-46.0) % MCV (80.0-100.0) fL MCH (25.0-35.0) pg MCHC (31.0-37.0) g/dL RDW (11.5-15.5) % Plt Count (150-450) k/uL MPV Neutrophils % % Lymphocytes % % Monocytes % % Eosinophils % % Basophils % % Neutrophils # (1.3-7.7) k/uL Lymphocytes # (1.0-4.8) k/uL Monocytes # (0-1.0) k/uL Eosinophils # (0-0.7) k/uL Basophils # (0-0.2) k/uL PT (9.0-12.0) sec INR (<1.2) APTT (22.0-30.0) sec Sodium (137-145) mmol/L Potassium (3.5-5.1) mmol/L Chloride (98-107) mmol/L Carbon Dioxide (22-30) mmol/L Anion Gap mmol/L BUN (7-17) mg/dL Creatinine (0.52-1.04) mg/dL Est GFR (CKD-EPI)AfAm (>60 ml/min/1.73 sqM) Est GFR (CKD-EPI)NonAf (>60 ml/min/1.73 sqM) Glucose (74-99) mg/dL Calcium (8.4-10.2) mg/dL Phosphorus (2.5-4.5) mg/dL Magnesium (1.6-2.3) mg/dL Total Bilirubin (0.2-1.3) mg/dL AST (14-36) U/L ALT (4-34) U/L Alkaline Phosphatase (38-126) U/L Troponin I <0.012 (0.000-0.034) ng/mL NT-Pro-B Natriuret Pep 149 pg/mL Total Protein (6.3-8.2) g/dL Albumin (3.5-5.0) g/dL - Radiology Data Radiology results: report reviewed (X-ray right foot is negative for acute disease), image reviewed Disposition Clinical Impression: Debility, Chronic pain Disposition: ADMITTED IP TO THIS [facility] Condition: Good Is patient prescribed a controlled substance at d/c from ED?: No Referrals: Merrick Baron MD [Primary Care Provider] - 1-2 days
[2022-03-07 03:31] LABS: Basophils % (A) 0 %; Eosinophils # (A) 0.1 k/uL (0-0.7); Eosinophils % (A) 1 %; HCT 43.6 % (34.0-46.0); HGB 14.2 gm/dL (11.4-16.0); Lymphocytes # (A) 0.9 k/uL (1.0-4.8); Lymphocytes % (A) 7 %; MCH 30.8 pg (25.0-35.0); MCHC 32.5 g/dL (31.0-37.0); MCV 94.7 fL (80.0-100.0); Mean Platelet Volume 7.5; Monocytes # (A) 0.5 k/uL (0-1.0); Monocytes % (A) 4 %; Neutrophils # (A) 10.4 k/uL (1.3-7.7); Neutrophils % (A) 86 %; Platelet Count 207 k/uL (150-450); RBC 4.61 m/uL (3.80-5.40); RDW 12.5 % (11.5-15.5); WBC 12.1 k/uL (3.8-10.6)
--- NOTE | 2022-03-07 03:48 | XR ---
EXAMINATION TYPE: XR foot complete RT DATE OF EXAM: 03/07/2022 COMPARISON: NONE HISTORY: Foot pain TECHNIQUE: 2 views FINDINGS: Metatarsals are intact. There is plantar calcaneal spurring. I see no fracture nor dislocat ion. There is mild hallux valgus. IMPRESSION: Hallux valgus. No fracture seen. Calcaneal spurring.
[2022-03-07 03:59] LABS: ALT 77 U/L (4-34); AST 46 U/L (14-36); African American GFR (CKD) >90 (>60 ml/min/1.73 sqM); Albumin 4.1 g/dL (3.5-5.0); Alkaline Phosphatase 175 U/L (38-126); Anion Gap 11 mmol/L; Blood Urea Nitrogen 19 mg/dL (7-17); Calcium 9.6 mg/dL (8.4-10.2); Carbon Dioxide 24 mmol/L (22-30); Chloride 103 mmol/L (98-107); Glucose 216 mg/dL (74-99); Magnesium 1.8 mg/dL (1.6-2.3); Non-African American GFR(CKD) 87 (>60 ml/min/1.73 sqM); Phosphorus 3.4 mg/dL (2.5-4.5); Sodium 138 mmol/L (137-145); Total Bilirubin 0.7 mg/dL (0.2-1.3); Total Protein 7.3 g/dL (6.3-8.2)
[2022-03-07 04:03] LABS: Potassium 4.3 mmol/L (3.5-5.1)
[2022-03-07 04:05] LABS: Prothrombin Time 10.3 sec (9.0-12.0)
[2022-03-07 04:12] LABS: Partial Thromboplastin Time 20.6 sec (22.0-30.0)
[2022-03-07] MEDS ORDERED: NALOXONE 0.4 MG/ML 1 ML VIAL IV PRN (04:16)
[2022-03-07] MEDS ORDERED: HYDROmorphone 1 MG/ML 1 ML SYRINGE IVP PRN (04:16)
[2022-03-07] MEDS ORDERED: ONDANSETRON 4 MG/2 ML VIAL IVP PRN (04:16)
[2022-03-07] MEDS: SODIUM CHLORIDE 0.9% 1,000 ML IV SCH ×2 (05:02→16:10)
[2022-03-07 05:44] LABS: Glucose,Whole Blood 167 mg/dL (70-110)
[2022-03-07] MEDS ORDERED: traMADol 50 MG TAB PO PRN (09:56)
[2022-03-07] MEDS ORDERED: DEXTROSE 50% SYRINGE 50 ML IVP PRN ×2 (09:59)
[2022-03-07] MEDS ORDERED: ESTRADIOL 0.1 MG/GM VAGINAL CREAM 42.5 GM TUBE VAGINAL SCH (10:00)
[2022-03-07] MEDS: VIT A,C & E-LUTEIN-MINERALS 1 EACH TAB PO SCH ×2 (10:23→21:17)
[2022-03-07] MEDS: ZINC SULFATE 220 MG CAP PO SCH (10:23)
[2022-03-07] MEDS: MELOXICAM 7.5 MG TAB PO SCH (10:23)
[2022-03-07] MEDS: TRIAMTERENE-HCTZ 37.5-25MG 1 EACH TAB PO SCH (10:23)
[2022-03-07] MEDS: DIPHENOX-ATROP 2.5-0.025 MG 1 EACH TAB PO SCH ×3 (10:24→17:51)
[2022-03-07] MEDS: CYANOCOBALAMIN 500 MCG TAB PO SCH (10:24)
[2022-03-07] MEDS: LORATADINE 10 MG TAB PO SCH (10:24)
[2022-03-07] MEDS: CITALOPRAM HYDROBROMIDE 10 MG TAB PO SCH (10:24)
[2022-03-07] MEDS: LEVOTHYROXINE 125 MCG TAB PO SCH (10:24)
[2022-03-07] MEDS: ASCORBIC ACID 500 MG TAB PO SCH (10:24)
[2022-03-07] MEDS: CHOLECALCIFEROL 25 MCG (1000 IU) TABLET PO SCH (10:24)
[2022-03-07 12:06] LABS: Glucose,Whole Blood 129 mg/dL (70-110)
[2022-03-07] MEDS: INSULIN ASPART (NovoLOG) 100 UNIT/ML VIAL SQ SCH ×3 (12:07→21:02)
--- NOTE | 2022-03-07 12:32 | P.HPIM ---
History of Present Illness H&P Date: 03/07/22 Notified of admission at 11:07 AM as patient was initially accepted for admissio n under a different hospitalist group. History of Presenting Illness: Patient is a very pleasant 82-year-old female with a past medical history of hypertension, hypothyroidism, basal cell skin cancer status post removal, osteoarthritis, and recent right shoulder surgery at [facility] currently working in rehab with Dr. Baron. She presented to the emergency department secondary to concerns of right shoulder, neck, and right foot pain after falling out of bed. She reported pain to right foot and inability to bear weight. She reports right shoulder and neck pain at baseline level and that she is currently receiving outpatient physical therapy for treatment of this. She denies hitting her head or having any loss of consciousness and denies any other injuries. Patient denies having any recent infections or exposure to mono contacts, headache, lightheadedness, dizziness, changes in vision or hearing, chest pain or palpitations, shortness of breath, vomiting, or experiencing any n umbness/tingling/focal weakness in her extremities. She underwent full evaluation in the emergency department. Labs completed and reviewed. CBC revealed mild leukocytosis with WBC count of 12.1. BMP revealed elevated BUN of 19 and hyperglycemia with glucose of 216. Liver profile revealing transaminitis with AST of 46, ALT of 77, and alkaline phosphatase of 175. Troponin was negative at less than 0.012. X-ray right foot negative for fracture or dislocation showing mild hallux valgus. Patient was admitted overnight to observation unit with consult to Dr. Baron for inpatient rehab requested by patient and her . Review of systems: Pertinent positives and negatives as discussed in HPI, a complete review of systems was performed and all other systems are negative. Physical exam: Vital signs reviewed and stable. General: Nontoxic, no distress and appears stated age. Derm: Skin warm and dry, normal coloration for ethnicity. Head: Atraumatic, normocephalic and symmetric. Eyes: EOMs intact, no lid lag, and anicteric sclera Mouth: no lip lesions, mucus membranes moist Cardiovascular: regular rate and rhythm with normal S1S2, no murmur, positive posterior tibial pulses bilaterally, and cap refill < 2 seconds. Lungs: Respirations even, regular, and unlabored on room air. Lungs CTA bilaterally, no rhonchi, no rales, no wheezing, and no accessory muscle usage. Abdominal: soft, nontender to palpation, no guarding, no appreciable organomegaly Ext: ROM intact. No gross muscle atrophy, no edema, no contractures Neuro: Speech clear, face symmetrical and CN II-XII grossly intact with no noted focal neuro deficits Psych: Alert and oriented to person, place, time, and situation. Appropriate and pleasant affect. Assessment and Plan of Care: Right foot pain, difficulties with ambulation Osteoarthritis -X-ray right foot negative for fracture or dislocation showing mild hallux valgus. -PT/OT consulted -Dr. Baron consulted for evaluation for possible inpatient rehabilitation by ED physician per family's request -Symptomatic care and pain management. -Fall precautions. -Rest, ice, elevation. Hypertension -Monitor vital signs -Discontinue maxide due to fall risk from HCTZ, add amlodipine 5mg daily today -Add lisinopril 10mg daily starting 03/09 Hypothyroidism -Continue daily medication regimen with levothyroxine. Right shoulder pain and neck pain, chronic -Patient reports being under treatment by orthopedic surgeon at [place] and receiving outpatient physical therapy. The patient is admitted with an anticipated less than 2 midnight stay for evaluation of right foot pain and inability to bear weight CODE STATUS: Full code DVT prophylaxis: Heparin Discussed with: Patient, patient's , and RN Anticipated discharge date: Within the next [address]: Patient requesting rehab, PT/OT to evaluate to determine if qualifies RN reports patient ambulating with walker. A total of 41 minutes was spent on the care of this complex patient more than 50% of the time was spent in counseling and care coordination. I reviewed the documentation as provided by the TOSIN above, who is the original author of this note. I agree with the documented assessment and plan, with the following changes: none Past Medical History Past Medical History: Cancer, Diabetes Mellitus, GERD/Reflux, Hyperlipidemia, Osteoarthritis (OA), Thyroid Disorder Additional Past Medical History / Comment(s): Type II diabetes. Hypothyroidism. Basal cell skin cancer. She had a problem with bulimia in her 40s. 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 IBS. History of Any Multi-Drug Resistant Organisms: None Reported Past Surgical History: Back Surgery, Cholecystectomy, Joint Replacement, Orthopedic Surgery Additional Past Surgical History / Comment(s): 5 back surgeries. Cervical fusion. Bilateral rotator cuff surgery. Colonoscopy 2014 she has had multiple colonoscopies in the past. Right shoulder replacement 01/14/22. Hammer toe removal. Past Anesthesia/Blood Transfusion Reactions: No Reported Reaction Past Psychological History: No Psychological Hx Reported Smoking Status: Former smoker Past Alcohol Use History: Rare Additional Past Alcohol Use History / Comment(s): Quit smoking in 1970. Past Drug Use History: None Reported - Past Family History Father Family Medical History: Cancer Additional Family Medical History / Comment(s): Prostate cancer. Mother Family Medical History: Cancer Additional Family Medical History / Comment(s): Breast cancer in her 80s. Brother(s) Family Medical History: Cancer Additional Family Medical History / Comment(s): Prostate cancer. Medications and Allergies Home Medications Medication Instructions Recorded Confirmed Type Levothyroxine Sodium [Synthroid] 125 mcg PO DAILY 05/22/15 03/07/22 History Triamterene-Hctz 37.5-25Mg 0.5 tab PO DAILY 05/22/15 03/07/22 History [Maxzide 37.5-25] Ascorbic Acid [Vitamin C] 500 mg PO DAILY 09/21/18 03/07/22 History Cholecalciferol [Vitamin D3 (25 25 mcg PO DAILY 09/21/18 03/07/22 History Mcg = 1000 Iu)] Cyanocobalamin [Vitamin B-12] 500 mcg PO DAILY 09/21/18 03/07/22 History Vit C/E/Zn/Coppr/Lutein/Zeaxan 1 cap PO BID 05/09/20 03/07/22 History [Preservision Areds 2 Softgel] Zinc 50 mg PO DAILY 05/09/20 03/07/22 History Cetirizine HCl [Zyrtec] 10 mg PO DAILY 03/07/22 03/07/22 History Citalopram Hydrobromide [CeleXA] 10 mg PO DAILY 03/07/22 03/07/22 History Diphenox-Atrop 2.5-0.025 mg 1 tab PO QID 03/07/22 03/07/22 History [Lomotil] Estradiol Cream [Estrace Cream 1 gm VAGINAL MOFR 03/07/22 03/07/22 History 0.01%] Meloxicam [Mobic] 15 mg PO DAILY 03/07/22 03/07/22 History traMADol HCL 50 mg PO Q6H PRN 03/07/22 03/07/22 History Allergies Allergy/AdvReac Type Severity Reaction Status Date / Time cat dander Allergy Rash/Hives Verified 03/07/22 07:32 mushroom Allergy Rash/Hives Verified 03/07/22 07:32 Sulfa (Sulfonamide Allergy Rash/Hives Verified 03/07/22 07:32 Antibiotics) tree and shrub pollen Allergy Rash/Hives Verified 03/07/22 07:32 pickles Allergy Rash/Hives Uncoded 03/07/22 07:32 Physical Exam Osteopathic Statement: *. No significant issues noted on an osteopathic structural exam other than those noted in the History and Physical/Consult. Vitals: Vital Signs Temp Pulse Pulse Resp BP BP BP 03/07/22 07:00 98.1 F 73 16 123/65 03/07/22 04:51 98.1 F 72 15 110/51 03/07/22 02:18 98.0 F 77 18 157/82 Pulse Ox 03/07/22 07:00 94 L 03/07/22 04:51 93 L 03/07/22 02:18 96 Intake and Output 03/06/22 03/07/22 03/07/22 22:59 06:59 14:59 Intake Total 100 118 Balance 100 118 Intake: Oral 100 118 Other: # Voids 1 Weight 98.883 kg Results CBC & Chem 7: 03/07/22 03:05 03/07/22 03:05 Labs: Abnormal Lab Results - Last 24 Hours (Table) 03/07/22 03/07/22 03/07/22 Range/Units 03:05 03:05 03:05 WBC 12.1 H (3.8-10.6) k/uL Neutrophils # 10.4 H (1.3-7.7) k/uL Lymphocytes # 0.9 L (1.0-4.8) k/uL APTT 20.6 L (22.0-30.0) sec BUN 19 H (7-17) mg/dL Glucose 216 H (74-99) mg/dL POC Glucose (mg/dL) (70-110) mg/dL AST 46 H (14-36) U/L ALT 77 H (4-34) U/L Alkaline Phosphatase 175 H (38-126) U/L 03/07/22 Range/Units 05:43 WBC (3.8-10.6) k/uL Neutrophils # (1.3-7.7) k/uL Lymphocytes # (1.0-4.8) k/uL APTT (22.0-30.0) sec BUN (7-17) mg/dL Glucose (74-99) mg/dL POC Glucose (mg/dL) 167 H (70-110) mg/dL AST (14-36) U/L ALT (4-34) U/L Alkaline Phosphatase (38-126) U/L Thrombosis Risk Factor Assmnt - Choose All That Apply Each Factor Represents 1 point: Obesity (BMI >25) Each Risk Factor Represents 2 Points: Patient confined to bed Each Risk Factor Represents 3 Points: Age 75 years or older Thrombosis Risk Factor Assessment Total Risk Factor Score: 6 Thrombosis Risk Factor Assessment Level: High Risk
--- NOTE | 2022-03-07 12:45 | P.CONS ---
History of Present Illness - Chief Complaint Walking difficulty - History of Present Illness I had the opportunity to see patient for inpatient rehab consultation with regard to walking difficulty. This is my very first encounter with patient ever. Patient admitted to [facility] last night history of falling off of bed and hurting left shoulder. Since that time she also realizes the right foot hurts. The right shoulder has been problem since surgery 2 months ago. Patient has been receiving outpatient therapy because of the right shoulder. I have discussed case with nurse clinician reports patient was ambulatory in the hallway at walker level. Previous functional history elicited patient corroborative by son: 82-year-old right-handed white female who is lives and 2 floor home with . Saul on second floor. Over the last 2 months is doing the cooking and most of the laundry. Patient is been assisting with the laundry of last 2 months. Otherwise independent with sitdown or standup shower and gait with standard cane. PCP Dr. Breanne Peter. Review of Systems Review of systems: ENT: Denies sneezes or discharge. Eyes: Denies discharge or photophobia. Cardiac: Denies chest pain or palpitation. Pulmonary: Denies cough or shortness of breath. Breast: Denies discharge or lumps. Gastrointestinal: Denies nausea, emesis, constipation, diarrhea. Genitourinary: Denies discharge or frequency. Musculoskeletal: Pain in right shoulder more than left shoulder or right foot. Neurologic: Denies motor or sensory change. Endocrine: Denies shakes or sweats. Oncology: Denies cancers. Dermatologic: Denies rash, itching, pruritus. ALLERGY/immunology: Denies sneezes, rashes. Past Medical History Past Medical History: Cancer, Diabetes Mellitus, GERD/Reflux, Hyperlipidemia, Osteoarthritis (OA), Thyroid Disorder Additional Past Medical History / Comment(s): Type II diabetes. Hypothyroidism. Basal cell skin cancer. She had a problem with bulimia in her 40s. 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 IBS. History of Any Multi-Drug Resistant Organisms: None Reported Past Surgical History: Back Surgery, Cholecystectomy, Joint Replacement, Orthopedic Surgery Additional Past Surgical History / Comment(s): 5 back surgeries. Cervical fusion. Bilateral rotator cuff surgery. Colonoscopy 2014 she has had multiple colonoscopies in the past. Right shoulder replacement 01/14/22. Hammer toe removal. Past Anesthesia/Blood Transfusion Reactions: No Reported Reaction Past Psychological History: No Psychological Hx Reported Smoking Status: Former smoker Past Alcohol Use History: Rare Additional Past Alcohol Use History / Comment(s): Quit smoking in 1969. Past Drug Use History: None Reported - Past Family History Father Family Medical History: Cancer Additional Family Medical History / Comment(s): Prostate cancer. Mother Family Medical History: Cancer Additional Family Medical History / Comment(s): Breast cancer in her 80s. Brother(s) Family Medical History: Cancer Additional Family Medical History / Comment(s): Prostate cancer. Medications and Allergies Home Medications Medication Instructions Recorded Confirmed Type Levothyroxine Sodium [Synthroid] 125 mcg PO DAILY 05/22/15 03/07/22 History Triamterene-Hctz 37.5-25Mg 0.5 tab PO DAILY 05/22/15 03/07/22 History [Maxzide 37.5-25] Ascorbic Acid [Vitamin C] 500 mg PO DAILY 09/21/18 03/07/22 History Cholecalciferol [Vitamin D3 (25 25 mcg PO DAILY 09/21/18 03/07/22 History Mcg = 1000 Iu)] Cyanocobalamin [Vitamin B-12] 500 mcg PO DAILY 09/21/18 03/07/22 History Vit C/E/Zn/Coppr/Lutein/Zeaxan 1 cap PO BID 05/09/20 03/07/22 History [Preservision Areds 2 Softgel] Zinc 50 mg PO DAILY 05/09/20 03/07/22 History Cetirizine HCl [Zyrtec] 10 mg PO DAILY 03/07/22 03/07/22 History Citalopram Hydrobromide [CeleXA] 10 mg PO DAILY 03/07/22 03/07/22 History Diphenox-Atrop 2.5-0.025 mg 1 tab PO QID 03/07/22 03/07/22 History [Lomotil] Estradiol Cream [Estrace Cream 1 gm VAGINAL MOFR 03/07/22 03/07/22 History 0.01%] Meloxicam [Mobic] 15 mg PO DAILY 03/07/22 03/07/22 History traMADol HCL 50 mg PO Q6H PRN 03/07/22 03/07/22 History Allergies Allergy/AdvReac Type Severity Reaction Status Date / Time cat dander Allergy Rash/Hives Verified 03/07/22 07:32 mushroom Allergy Rash/Hives Verified 03/07/22 07:32 Sulfa (Sulfonamide Allergy Rash/Hives Verified 03/07/22 07:32 Antibiotics) tree and shrub pollen Allergy Rash/Hives Verified 03/07/22 07:32 pickles Allergy Rash/Hives Uncoded 03/07/22 07:32 Physical Exam Vitals: Vital Signs Temp Pulse Pulse Resp BP BP BP 03/07/22 07:00 98.1 F 73 16 123/65 03/07/22 04:51 98.1 F 72 15 110/51 03/07/22 02:18 98.0 F 77 18 157/82 Pulse Ox 03/07/22 07:00 94 L 03/07/22 04:51 93 L 03/07/22 02:18 96 Intake and Output 03/06/22 03/07/22 03/07/22 22:59 06:59 14:59 Intake Total 100 118 Balance 100 118 Intake: Oral 100 118 Other: # Voids 1 Weight 98.883 kg Skin: Atrophic, intact, appears younger than stated age. General: Overweight build and comfortable appearance. Head: Normocephalic, atraumatic. Eyes: Symmetric. Pupils equal round. Ears: Symmetric. Hearing within normal limits. Mouth: Clear. Neck: Supple. Carotid without bruit. Cardiac: Regular rate and rhythm. Lungs: Clear anteriorly and posteriorly. Abdomen: Soft active nontender, overweight. Extremities: Normal tone. Marked limitation right shoulder. Neurological: Mental status: Alert, cooperative, pleasant. Cranial nerves: Symmetric facial tone and trapezius. Motor: Active movement all 4 limbs. Sensation: Intact throughout. DTRs: Symmetric and equal throughout. Mobility: And did not attempt to stand at this time. Results CBC & Chem 7: 03/07/22 03:05 03/07/22 03:05 Labs: Abnormal Lab Results - Last 24 Hours (Table) 03/07/22 03/07/22 03/07/22 Range/Units 03:05 03:05 03:05 WBC 12.1 H (3.8-10.6) k/uL Neutrophils # 10.4 H (1.3-7.7) k/uL Lymphocytes # 0.9 L (1.0-4.8) k/uL APTT 20.6 L (22.0-30.0) sec BUN 19 H (7-17) mg/dL Glucose 216 H (74-99) mg/dL POC Glucose (mg/dL) (70-110) mg/dL AST 46 H (14-36) U/L ALT 77 H (4-34) U/L Alkaline Phosphatase 175 H (38-126) U/L 03/07/22 03/07/22 Range/Units 05:43 12:04 WBC (3.8-10.6) k/uL Neutrophils # (1.3-7.7) k/uL Lymphocytes # (1.0-4.8) k/uL APTT (22.0-30.0) sec BUN (7-17) mg/dL Glucose (74-99) mg/dL POC Glucose (mg/dL) 167 H 129 H (70-110) mg/dL AST (14-36) U/L ALT (4-34) U/L Alkaline Phosphatase (38-126) U/L Assessment and Plan (1) Chronic pain Current Visit: Yes Status: Acute Code(s): G89.29 - OTHER CHRONIC PAIN SNOMED Code(s): 75954834 (2) Debility Current Visit: Yes Status: Acute Code(s): R53.81 - OTHER MALAISE SNOMED Code(s): 09970670 (3) Shoulder pain, left Current Visit: No Status: Acute Code(s): M25.512 - PAIN IN LEFT SHOULDER SNOMED Code(s): 13284777 Plan: Comments and plan: At this time patient preferences for return to home and hopefully today. I discussed case with nurse clinician who reports that this is their same plan as well. I am in agreement with this.
[2022-03-07 17:31] LABS: Glucose,Whole Blood 184 mg/dL (70-110)
[2022-03-07 20:59] LABS: Glucose,Whole Blood 144 mg/dL (70-110)
[2022-03-07] MEDS: HEPARIN SODIUM,PORCINE/PF 5,000 UNIT/0.5 ML SYRINGE SQ SCH (21:17)
[2022-03-08 06:11] LABS: Glucose,Whole Blood 130 mg/dL (70-110)
[2022-03-08] MEDS: INSULIN ASPART (NovoLOG) 100 UNIT/ML VIAL SQ SCH (06:14)
[2022-03-08] MEDS: LEVOTHYROXINE 125 MCG TAB PO SCH (06:28)
[2022-03-08] MEDS ORDERED: amLODIPine 5 MG TAB PO SCH (09:15)
[2022-03-08] MEDS: MELOXICAM 7.5 MG TAB PO SCH (09:18)
[2022-03-08] MEDS: ASCORBIC ACID 500 MG TAB PO SCH (09:19)
[2022-03-08] MEDS: CHOLECALCIFEROL 25 MCG (1000 IU) TABLET PO SCH (09:19)
[2022-03-08] MEDS: ZINC SULFATE 220 MG CAP PO SCH (09:19)
[2022-03-08] MEDS: VIT A,C & E-LUTEIN-MINERALS 1 EACH TAB PO SCH (09:19)
[2022-03-08] MEDS: CYANOCOBALAMIN 500 MCG TAB PO SCH (09:19)
[2022-03-08] MEDS: CITALOPRAM HYDROBROMIDE 10 MG TAB PO SCH (09:19)
[2022-03-08] MEDS: HEPARIN SODIUM,PORCINE/PF 5,000 UNIT/0.5 ML SYRINGE SQ SCH (09:19)
[2022-03-08] MEDS: SODIUM CHLORIDE 0.9% 1,000 ML IV SCH (10:20)
[2022-03-08 10:22] VITALS: BP 153/78; PULSE 96; RESP 18; TEMP 97.3
[2022-03-08] MEDS: LORATADINE 10 MG TAB PO SCH (10:34)
[2022-03-08] MEDS: TRIAMTERENE-HCTZ 37.5-25MG 1 EACH TAB PO SCH (10:37)
--- NOTE | 2022-03-08 11:47 | P.DS ---
Providers Date of admission: 03/07/22 04:17 Expected date of discharge: 03/08/22 Attending physician: Kala Almanza DO Primary care physician: Merrick Baron Hospital Course: Discharge Diagnosis: Right foot pain, difficulties with ambulation. Resolved. Patient reports resolution of previously reported right foot pain and is ambulating with walker independently without any difficulties. X-ray right foot negative for fracture or dislocation showing mild hallux valgus. Patient provided with prescription for walker and to continue with her previously scheduled home care and physical therapy. Hypertension, blood pressure medication changes were made during hospitalization. Maxide discontinued secondary to high fall risk potential with hydrochlorothiazide and patient was started on amlodipine and lisinopril. Hypothyroidism. Continue daily medication regimen with levothyroxine. Right shoulder pain and neck pain, chronic. Patient reports being under treatment by orthopedic surgeon at [place] and receiving outpatient home care and physical therapy. Hospital Course: Patient is a very pleasant 82-year-old female with a past medical history of hypertension, hypothyroidism, basal cell skin cancer status post removal, osteoarthritis, and recent right shoulder surgery at [facility] currently working in rehab with Dr. Baron. She presented to the emergency department secondary to concerns of right shoulder, neck, and right foot pain after falling out of bed. She reported pain to right foot and inability to bear weight. She reports right shoulder and neck pain at baseline level and that she is currently receiving outpatient physical therapy for treatment of this. She denies hitting her head or having any loss of consciousness and denies any other injuries. Patient denies having any recent infections or exposure to mono contacts, headache, lightheadedness, dizziness, changes in vision or hearing, chest pain or palpitations, shortness of breath, vomiting, or experiencing any numbness/tingling/focal weakness in her extremities. She underwent full evaluation in the emergency department. Labs completed and reviewed. CBC revealed mild leukocytosis with WBC count of 12.1. BMP revealed elevated BUN of 19 and hyperglycemia with glucose of 216. Liver profile revealing transaminitis with AST of 46, ALT of 77, and alkaline phosphatase of 175. Troponin was negative at less than 0.012. X-ray right foot negative for fracture or dislocation showing mild hallux valgus. Patient was admitted overnight to observation unit with consult to Dr. Baron for inpatient rehab requested by patient and her . Patient was evaluated by physical therapy and was able to ambulate up and down the roper without difficulties using walker. Patient reports she has had full resolution of previously reported right foot pain and is able to bear weight on her right foot without any difficulties. Patient states she would like to go home and no longer wants to go to rehab. Patient's son at bedside in agreement to take patient home at this time. Medically patient is stable, patient provided with prescription for walker and blood pressure medication changes were made. Maxide discontinued secondary to high fall risk potential with hydrochlorothiazide and patient was started on amlodipine and lisinopril. Physical exam: Vital signs reviewed and stable. General: Nontoxic, no distress and appears stated age. Derm: Skin warm and dry, normal coloration for ethnicity. Head: Atraumatic, normocephalic and symmetric. Eyes: EOMs intact, no lid lag, and anicteric sclera Mouth: no lip lesions, mucus membranes moist Cardiovascular: regular rate and rhythm with normal S1S2, no murmur, positive posterior tibial pulses bilaterally, and cap refill < 2 seconds. Lungs: Respirations even, regular, and unlabored on room air. Lungs CTA bilaterally, no rhonchi, no rales, no wheezing, and no accessory muscle usage. Abdominal: soft, nontender to palpation, no guarding, no appreciable organomegaly Ext: ROM intact. No gross muscle atrophy, no edema, no contractures. No bruising or swelling noted right ankle. Neuro: Speech clear, face symmetrical and CN II-XII grossly intact with no noted focal neuro deficits Psych: Alert and oriented to person, place, time, and situation. Appropriate and pleasant affect. A total of 36 minutes of time were spent preparing this complex discharge summary. Pt was discharged on 03/08/22 at 11:30 AM. I reviewed the documentation as provided by the TOSIN above, who is the original author of this note. I agree with the documented assessment and plan, with the following changes: none Patient Condition at Discharge: Stable Plan - Discharge Summary New Discharge Prescriptions: New amLODIPine [Norvasc] 5 mg PO DAILY 30 Days #30 tab lisinopriL [Zestril] 10 mg PO DAILY 30 Days #30 tab Continue Levothyroxine Sodium [Synthroid] 125 mcg PO DAILY Cyanocobalamin [Vitamin B-12] 500 mcg PO DAILY Cholecalciferol [Vitamin D3 (25 Mcg = 1000 Iu)] 25 mcg PO DAILY Ascorbic Acid [Vitamin C] 500 mg PO DAILY Zinc 50 mg PO DAILY Vit C/E/Zn/Coppr/Lutein/Zeaxan [Preservision Areds 2 Softgel] 1 cap PO BID Citalopram Hydrobromide [CeleXA] 10 mg PO DAILY Cetirizine HCl [Zyrtec] 10 mg PO DAILY traMADol HCL 50 mg PO Q6H PRN PRN Reason: Pain Meloxicam [Mobic] 15 mg PO DAILY Estradiol Cream [Estrace Cream 0.01%] 1 gm VAGINAL MOFR Discontinued Triamterene-Hctz 37.5-25Mg [Maxzide 37.5-25] 0.5 tab PO DAILY Diphenox-Atrop 2.5-0.025 mg [Lomotil] 1 tab PO QID Discharge Medication List Levothyroxine Sodium [Synthroid] 125 mcg PO DAILY 05/22/15 [History] Ascorbic Acid [Vitamin C] 500 mg PO DAILY 09/21/18 [History] Cholecalciferol [Vitamin D3 (25 Mcg = 1000 Iu)] 25 mcg PO DAILY 09/21/18 [Histo ry] Cyanocobalamin [Vitamin B-12] 500 mcg PO DAILY 09/21/18 [History] Vit C/E/Zn/Coppr/Lutein/Zeaxan [Preservision Areds 2 Softgel] 1 cap PO BID 05/09/20 [History] Zinc 50 mg PO DAILY 05/09/20 [History] Cetirizine HCl [Zyrtec] 10 mg PO DAILY 03/07/22 [History] Citalopram Hydrobromide [CeleXA] 10 mg PO DAILY 03/07/22 [History] Estradiol Cream [Estrace Cream 0.01%] 1 gm VAGINAL MOFR 03/07/22 [History] Meloxicam [Mobic] 15 mg PO DAILY 03/07/22 [History] traMADol HCL 50 mg PO Q6H PRN 03/07/22 [History] amLODIPine [Norvasc] 5 mg PO DAILY 30 Days #30 tab 03/08/22 [Rx] lisinopriL [Zestril] 10 mg PO DAILY 30 Days #30 tab 03/08/22 [Rx] Follow up Appointment(s)/Referral(s): Breanne Peter NPC [Family Provider] - 3 Days (please call for an appointment on Thursday or Thursday) Patient Instructions/Handouts: Weakness (GEN), Shoulder Pain (GEN) Activity/Diet/Wound Care/Special Instructions: Activity: As tolerated. Take breaks as needed. Use walker at all times for walking. Diet: Heart healthy and carb consistent diet. Avoid salts, or foods with hidden salts such as canned or boxed foods and frozen dinners. Extra salt makes your heart work harder and traps the fluid in your body for longer. Special Instructions: Take all of your medications as directed and remember to keep all of your doctor's appointments and follow-up as needed. Please review your discharge medication list closely as medication changes were made. Your triamterene/hydrochlorothiazide (Maxide) was discontinued secondary to increased fall risks resulting from hydrochlorothiazide. You have been started on amlodipine and lisinopril. You have received your medications for today in the hospital and your next dose of these medications will be due tomorrow morning, 03/09/2022. You are being discharged home as requested to continue your current home care services and physical therapy as previously set up. Thank you for allowing us to participate in your care, it was truly a pleasure having you for our patient!!! Discharge Disposition: HOME WITH HOME HEALTH SERVICES
[2022-03-08 12:32] LABS: Glucose,Whole Blood 154 mg/dL (70-110)
[2022-03-09] MEDS ORDERED: lisinopriL 10 MG TAB PO SCH (09:00)
== END 2022-03-08 12:57 | disposition home health service (06) ==
LOC: EC 02:15 → 6NMEDSUR 04:17
PROVIDERS: ADMIT Internal Medicine; ATTEND Internal Medicine
DX: M79.671 Pain in right foot (principal); M20.11 Hallux valgus (acquired), right foot; E11.65 Type 2 diabetes mellitus with hyperglycemia; E78.5 Hyperlipidemia, unspecified; M19.90 Unspecified osteoarthritis, unspecified site; E03.9 Hypothyroidism, unspecified; Z85.828 Personal history of other malignant neoplasm of skin; Z90.49 Acquired absence of other specified parts of digestive tract; Z87.891 Personal history of nicotine dependence; D72.829 Elevated white blood cell count, unspecified; G89.29 Other chronic pain; I10 Essential (primary) hypertension; Z80.3 Family history of malignant neoplasm of breast; Z86.59 Personal history of other mental and behavioral disorders; Z96.611 Presence of right artificial shoulder joint; Z98.890 Other specified postprocedural states; Z79.890 Hormone replacement therapy; Z79.1 Long term (current) use of non-steroidal anti-inflammatories (NSAID); Z79.899 Other long term (current) drug therapy; Z88.2 Allergy status to sulfonamides; Z91.018 Allergy to other foods; Z91.09 Other allergy status, other than to drugs and biological substances
CPT/HCPCS: 96361 ×3; 96372 ×2; 96375 ×2; 96374; 99285; 36415; 97162; 97166; 83880; 80053; 83735; 84100; 84484; 85025; 85610; 85730; 83036; 73630; G0378 ×2; J2405; J1170; J1885; J1644 ×2

== ENCOUNTER → 2022-07-02 | Outpatient (CLI) | payer MEDICARE, OTHER ==
--- NOTE | 2022-07-03 19:16 | MM ---
Reason for Exam: Screening (asymptomatic). Last mammogram was performed 1 year(s) and 1 month(s) ago. Patient History: Menarche at age 10. First Full-Term at age 27. Postmenopausal. Other cancer, age 72. Patient used Estrogen for 14 years. Patient used Progesterone for 14 years. Mother had breast cancer. Risk Values: Yoselin 5 year model risk: 3.2%. NCI Lifetime model risk: 4.0%. Prior Study Comparison: 09/21/2018 Bilateral Screening Mammogram, [facility]. 05/09/2020 Bilateral Screening Mammogram, [facility]. 06/11/2021 Bilateral Screening Mammogram, [facility]. Tissue Density: There are scattered fibroglandular densities. Findings: Analyzed By CAD. Inferior asymmetric density left MLO view is unchanged. There is no suspicious group of microcalcifications or new suspicious mass in either breast. Overall Assessment: Benign, BI-RAD 2 Management: Screening Mammogram of both breasts in 1 year. . Patient should continue monthly self-breast exams. A clinical breast exam by your physician is recommended on an annual basis. This exam should not preclude additional follow-up of suspicious palpable abnormalities. Note on Yoselin scores and lifetime risk: 1. A Yoselin score greater than 3% is considered moderate risk. If this is the case, consider specialist referral to assess eligibility for a risk reducing agent. 2. If overall lifetime risk for the development of breast cancer is 20% or higher, the patient may qualify for future screening with alternating mammogram and breast MRI. Electronically signed and approved by: Jeanette Cary M.D. Radiologist
== END | disposition home or self-care (01) ==
LOC: RADMAMWWP 11:12
PROVIDERS: ATTEND Family Medicine
DX: Z12.31 Encounter for screening mammogram for malignant neoplasm of breast (principal); Z78.0 Asymptomatic menopausal state; Z80.3 Family history of malignant neoplasm of breast
CPT/HCPCS: 77063; 77067

== ENCOUNTER → 2023-06-10 | Outpatient (CLI) | payer MEDICARE, OTHER ==
[2023-06-10 09:38] LABS: Basophils % (A) 1 %; Eosinophils # (A) 0.4 k/uL (0-0.7); Eosinophils % (A) 5 %; HCT 44.2 % (34.0-46.0); HGB 13.9 gm/dL (11.4-16.0); Lymphocytes # (A) 1.6 k/uL (1.0-4.8); Lymphocytes % (A) 21 %; MCH 30.1 pg (25.0-35.0); MCHC 31.6 g/dL (31.0-37.0); MCV 95.4 fL (80.0-100.0); Monocytes # (A) 0.4 k/uL (0-1.0); Monocytes % (A) 5 %; Neutrophils # (A) 5.2 k/uL (1.3-7.7); Neutrophils % (A) 67 %; Platelet Count 197 k/uL (150-450); RBC 4.63 m/uL (3.80-5.40); WBC 7.8 k/uL (3.8-10.6)
[2023-06-10 11:39] LABS: ALT 20 U/L (4-34); AST 24 U/L (14-36); African American GFR (CKD) >90 (>60 ml/min/1.73 sqM); Albumin 4.2 g/dL (3.5-5.0); Alkaline Phosphatase 116 U/L (38-126); Anion Gap 6 mmol/L; Blood Urea Nitrogen 36 mg/dL (7-17); Calcium 9.7 mg/dL (8.4-10.2); Carbon Dioxide 30 mmol/L (22-30); Chloride 107 mmol/L (98-107); Glucose 120 mg/dL (74-99); Non-African American GFR(CKD) 83 (>60 ml/min/1.73 sqM); Potassium 4.7 mmol/L (3.5-5.1); Sodium 143 mmol/L (137-145); Total Bilirubin 0.5 mg/dL (0.2-1.3); Total Protein 7.2 g/dL (6.3-8.2)
[2023-06-10 11:53] LABS: T4, Free (Free Thyroxine) 1.17 ng/dL (0.78-2.19)
[2023-06-10 18:57] LABS: Chol/HDL Ratio 4.54 Ratio; LDL Cholesterol,Calculated 170.2 mg/dL (0.0-131.0)
--- NOTE | 2023-06-11 07:23 | BD ---
EXAMINATION TYPE: Axial Bone Density DATE OF EXAM: 06/10/2023 CLINICAL HISTORY: 83 years old Female. ICD-10 CODE: Z13.820 Screening for osteoporosis Height: 5 ft 6 in Weight: 205 FRAX RISK QUESTIONS: Alcohol (3 or more units per day): no Family History (Parent hip fracture): yes Glucocorticoids (More than 3mos): no (Ex: prednisone, prednisolone, methylprednisolone, dexamethasone, and hydrocortisone). History of Fracture in Adulthood: no Secondary Osteoporosis: 1. Type 1 Diabetes: no 2. Hyperthyroidism: no 3. Menopause before 45: no 4. Malnutrition: no 5. Chronic liver disease: no Rheumatoid Arthritis: no Current Tobacco Use: no RISK FACTORS HISTORY OF: Surgery to Spine/Hip(right/left)/Wrist (right/left): lumbar surg x 4 When: most receent 5 years ago MEDICATIONS: Thyroid Medications: yes Which medication: synthroid How Lon plus years Osteoporosis Medications: Which medication: How Long: EXAM MEASUREMENTS: Bone mineral density about the R hip (g/cm2): 0.717 Bone mineral density about the L hip (g/cm2): 0.748 T Score values are as follows: -----R Neck: -2.3 -----L Neck: -2.1 -----R Total: -2.4 -----L Total: -2.1 Z Score values are as follows: -----R Neck: -0.6 -----L Neck: -0.3 -----R Total: -0.9 -----L Total: -0.6 Bone mineral density has: decreased -6.3 % since study of: 2018 Bone mineral density about the L Wrist (g/cm2): 0.573 T Score values are as follows: -----Dist. R+U: -1.8 -----Prox. R+U: -0.9 -----Radius total: -1.7 Z Score values are as follows: -----Dist. R+U: 1.4 -----Prox. R+U: 2.2 -----Radius total: 1.4 first time wrist has been done FRAX%s: The graph provided illustrates a 23.6 % chance for a major osteoporotic fx and a 7.3 % chance for the hips probability for fx in 10 years time. IMPRESSION: Osteopenia (T Score between -2.5 and -1). There is slightly increased risk of fracture and the patient may be considered for treatment. Re-Screen 2-5 years. NOTE: T-SCORE=SD OF THE YOUNG ADULT MEAN.
== END | disposition home or self-care (01) ==
LOC: RADBDWWP 08:43
PROVIDERS: ATTEND Family Medicine
DX: Z13.820 Encounter for screening for osteoporosis (principal); Z00.00 Encounter for general adult medical examination without abnormal findings; Z13.6 Encounter for screening for cardiovascular disorders; M85.89 Other specified disorders of bone density and structure, multiple sites; E55.9 Vitamin D deficiency, unspecified; E11.9 Type 2 diabetes mellitus without complications
CPT/HCPCS: 36415; 77080; 80053; 80061; 82306; 83036; 84439; 84443; 85025

== ENCOUNTER → 2023-08-11 | Outpatient (CLI) | payer MEDICARE, OTHER ==
[2023-08-11 15:33] VITALS: BP 133/75; PULSE 62; RESP 18; TEMP 98.2
--- NOTE | 2023-08-11 16:21 | P.HPOB ---
History of Present Illness H&P Date: 08/11/23 Chief Complaint: The patient is here for her routine gynecologic exam and ma mmogram. This is an 83-year-old with an LMP of 1989. Patient is without gynecologic complaints and denies any postmenopausal bleeding. She has used estrogen vaginal cream because of recurrent UTIs. She states this has helped significantly at decreasing the number of UTIs and would like to continue using it. Review of Systems She has had a net weight loss of 3 pounds over the past 2 years. She recently has been attending medical weight loss and this has helped her lose weight recently. She denies respiratory, cardiac, or GI problems. Past Medical History Past Medical History: Cancer, Diabetes Mellitus, GERD/Reflux, Hyperlipidemia, Osteoarthritis (OA), Thyroid Disorder Additional Past Medical History / Comment(s): Type II diabetes. Hypothyroidism. Basal cell skin cancer. She had a problem with bulimia in her 40s. IBS. 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 History of Any Multi-Drug Resistant Organisms: None Reported Past Surgical History: Back Surgery, Cholecystectomy, Joint Replacement, Orthopedic Surgery Additional Past Surgical History / Comment(s): 5 back surgeries. Cervical fusion. Bilateral rotator cuff surgery. Colonoscopy 2014 she has had multiple colonoscopies in the past. Right shoulder replacement 01/14/22. Hammer toe removal. Past Anesthesia/Blood Transfusion Reactions: No Reported Reaction Past Psychological History: No Psychological Hx Reported Smoking Status: Former smoker Past Alcohol Use History: None Reported Additional Past Alcohol Use History / Comment(s): Quit smoking in 1969. Past Drug Use History: None Reported Additional History: She has been since 1966 and is not sexually active. She is retired - Past Family History Father Family Medical History: Cancer Additional Family Medical History / Comment(s): Prostate cancer. Mother Family Medical History: Cancer Additional Family Medical History / Comment(s): Breast cancer in her 80s. Brother(s) Family Medical History: Cancer Additional Family Medical History / Comment(s): Prostate cancer. Medications and Allergies Home Medications Medication Instructions Recorded Confirmed Type Levothyroxine Sodium [Synthroid] 125 mcg PO DAILY 05/22/15 08/11/23 History Ascorbic Acid [Vitamin C] 500 mg PO DAILY 09/21/18 08/11/23 History Cholecalciferol [Vitamin D3 (25 25 mcg PO DAILY 09/21/18 08/11/23 History Mcg = 1000 Iu)] Vit C/E/Zn/Coppr/Lutein/Zeaxan 1 cap PO BID 05/09/20 08/11/23 History [Preservision Areds 2 Softgel] Cetirizine HCl [Zyrtec] 10 mg PO DAILY 03/07/22 08/11/23 History Citalopram Hydrobromide [CeleXA] 10 mg PO DAILY 03/07/22 08/11/23 History Estradiol Cream [Estrace Cream 1 gm VAGINAL MOFR 03/07/22 08/11/23 History 0.01%] traMADol HCL 50 mg PO Q6H PRN 03/07/22 08/11/23 History amLODIPine [Norvasc] 5 mg PO DAILY 30 Days #30 tab 03/08/22 08/11/23 Rx lisinopriL [Zestril] 10 mg PO DAILY 30 Days #30 tab 03/08/22 08/11/23 Rx Allergies Allergy/AdvReac Type Severity Reaction Status Date / Time cat dander Allergy Rash/Hives Verified 08/11/23 15:30 mushroom Allergy Rash/Hives Verified 08/11/23 15:30 Sulfa (Sulfonamide Allergy Rash/Hives Verified 08/11/23 15:30 Antibiotics) tree and shrub pollen Allergy Rash/Hives Verified 08/11/23 15:30 pickles Allergy Rash/Hives Uncoded 08/11/23 15:30 Exam Vital Signs Temp Pulse Resp BP Pulse Ox 08/11/23 15:31 98.2 F 62 18 133/75 96 Intake and Output 08/11/23 08/11/23 08/11/23 06:59 14:59 22:59 Other: Weight 97.976 kg Height 5 feet 8 inches, weight 216 pounds, BMI 32.8. This is a well-developed well-nourished white female who is alert and oriented times 3 in no acute distress. HEENT: Within normal limits. NECK: Supple without mass or thyromegaly. CHEST AND LUNGS: Clear to auscultation. HEART: Regular rate and rhythm. BREASTS: Are without mass or discharge. There is bilateral nipple inversion which the patient states she has had all of her life. There is a stable mole at the 1 o'clock position of the left breast measuring 10 x 17 mm. This has a benign appearance. AXILLARY EXAM: Negative for adenopathy. BACK: Negative for CVA tenderness. ABDOMEN: Soft, nontender, without palpable masses. PELVIC EXAM: Normal external genitalia with mild to moderate atrophy. Cervix and vagina appear normal with mild to moderate atrophy. There is no unusual discharge. There is no evidence of prolapse. The uterus is midposition, nongravid size and nontender. There are no palpable adnexal masses or tenderness. RECTAL EXAM: Rectovaginal exam is negative for mass or tenderness and is negative for occult blood. EXTREMITIES: Nontender. IMPRESSION: 1. 83-year-old menopausal female with normal gynecologic exam. 2. History of osteopenia. 3. Stable left breast mole. PLAN: 1. Pap smears have been discontinued. 2. Self breast awareness was discussed with the patient. We have also discussed symptoms associated with inflammatory breast cancer. 3. Screening mammogram was done today. 4. Osteoporosis prevention was discussed. I have stressed the importance of adequate calcium, vitamin D and regular exercise. Recommended amounts of calcium and vitamin D were also discussed. Bone density test was done on 06/10/2023 which showed osteopenia. We will plan on repeating in approximately 2 years. 5. She will continue to see her perinatal social worker, Dr. Navarro on a regular basis and she will continue to show him of the left breast mole. 6. She was advised to return in one year for her annual well woman exam.
== END ==
LOC: WWCWWP 14:42
PROVIDERS: ATTEND Obstetrics & Gynecology
DX: Z01.419 Encounter for gynecological examination (general) (routine) without abnormal findings (principal); M85.80 Other specified disorders of bone density and structure, unspecified site; D22.5 Melanocytic nevi of trunk; Z78.0 Asymptomatic menopausal state; Z91.09 Other allergy status, other than to drugs and biological substances; Z91.018 Allergy to other foods; Z88.2 Allergy status to sulfonamides; Z87.891 Personal history of nicotine dependence; Z80.3 Family history of malignant neoplasm of breast

== ENCOUNTER → 2023-08-11 | Outpatient (CLI) | payer MEDICARE, OTHER ==
--- NOTE | 2023-08-13 13:10 | MM ---
Reason for Exam: Screening (asymptomatic). Last mammogram was performed 1 year(s) and 1 month(s) ago. Patient History: Menarche at age 10. First Full-Term at age 27. Postmenopausal. Other cancer, age 72. Patient used Estrogen for 14 years. Patient used Progesterone for 14 years. Mother had breast cancer. Risk Values: Yoselin 5 year model risk: 3.0%. NCI Lifetime model risk: 3.4%. Prior Study Comparison: 05/09/2020 Bilateral Screening Mammogram, [facility]. 06/11/2021 Bilateral Screening Mammogram, [facility]. 07/02/2022 Bilateral MG 3D screening mammo w/cad, [facility]. Tissue Density: There are scattered areas of fibroglandular density. Findings: Analyzed By CAD. Right breast: There is no suspicious group of microcalcifications or new suspicious mass. Left breast: There is no suspicious group of microcalcifications or new suspicious mass. Overall Assessment: Negative, BI-RAD 1 Management: Screening Mammogram of both breasts in [address] [facility] will attempt to contact patient to return for supplemental views and ultrasound if indicated. Patient should continue monthly self-breast exams. A clinical breast exam by your physician is recommended on an annual basis. This exam should not preclude additional follow-up of suspicious palpable abnormalities. Note on Yoselin scores and lifetime risk: 1. A Yoselin score greater than 3% is considered moderate risk. If this is the case, consider specialist referral to assess eligibility for a risk reducing agent. 2. If overall lifetime risk for the development of breast cancer is 20% or higher, the patient may qualify for future screening with alternating mammogram and breast MRI. Electronically signed and approved by: Sloan Alvarado DO
== END | disposition home or self-care (01) ==
LOC: RADMAMWWP 14:38
PROVIDERS: ATTEND Family Medicine
DX: Z12.31 Encounter for screening mammogram for malignant neoplasm of breast (principal); Z80.3 Family history of malignant neoplasm of breast; Z78.0 Asymptomatic menopausal state
CPT/HCPCS: 77063; 77067

== ENCOUNTER → 2024-07-08 | Outpatient (CLI) | payer MEDICARE, OTHER ==
--- NOTE | 2024-07-09 13:45 | CA ---
Transthoracic Echo Report Name: Starr Gill Age: 84 Gender: F : 1940 Exam Date: 07/08/2024 14:55 Exam Location: [facility] Ht (in): 68 Wt (lb): 210 Ordering Physician: Nikita Leigh MD Attending/Referring Phys: [id number], [employer] Jailyn Neely RDCS Procedure CPT: Indications: R01.1 CARDIAC MURMUR, UNSPECIFIED Cardiac Hx: Technical Quality: Good Contrast 1: Total Dose (mL): Contrast 2: Total Dose (mL): MEASUREMENTS (Male / Female) Normal Values 2D ECHO LV Diastolic Diameter PLAX 4.6 cm 4.2 - 5.9 / 3.9 - 5.3 cm LV Systolic Diameter PLAX 3.0 cm IVS Diastolic Thickness 0.8 cm 0.6 - 1.0 / 0.6 - 0.9 cm LVPW Diastolic Thickness 0.7 cm 0.6 - 1.0 / 0.6 - 0.9 cm LV Relative Wall Thickness 0.3 LVOT Diameter 2.1 cm Aortic Root Diameter 3.3 cm LV Diastolic Volume MOD BP 91.3 cm??? 67 - 155 / 56 - 104 cm??? LV Systolic Volume MOD BP 36.3 cm??? 22 - 58 / 19 - 49 cm??? LV Ejection Fraction MOD BP 60.3 % >= 55 % LV Cardiac Index MOD BP 1499.0 cm???/min???m??? LV Diastolic Volume MOD 4C 86.6 cm??? LV Systolic Volume MOD 4C 33.4 cm??? LV Ejection Fraction MOD 4C 61.4 % LV Cardiac Index MOD 4C 1448.1 cm???/min???m??? LV Diastolic Length 4C 7.8 cm LV Systolic Length 4C 5.9 cm LV Diastolic Volume MOD 2C 95.4 cm??? LV Systolic Volume MOD 2C 36.5 cm??? LV Ejection Fraction MOD 2C 61.7 % LV Cardiac Index MOD 2C 1603.5 cm???/min???m??? LV Diastolic Length 2C 7.9 cm LV Systolic Length 2C 6.4 cm LA Volume 51.8 cm??? 18 - 58 / 22 - 52 cm??? LA Volume Index 23.9 cm???/m??? 16 - 28 cm???/m??? Ascending Aorta Diameter 3.4 cm DOPPLER AV Peak Velocity 245.4 cm/s AV Peak Gradient 24.1 mmHg AV Mean Velocity 177.4 cm/s AV Mean Gradient 13.9 mmHg AV Velocity Time Integral 57.3 cm LVOT Peak Velocity 112.0 cm/s LVOT Peak Gradient 5.0 mmHg LVOT Velocity Time Integral 25.4 cm LVOT Stroke Volume 88.6 cm??? LVOT Stroke Volume Index 42.5 ml/m??? LVOT Cardiac Index 2411.9 cm???/min???m??? AV Area Cont Eq vti 1.5 cm??? AV Area Cont Eq pk 1.6 cm??? MV Area PHT 3.0 cm??? Mitral E Point Velocity 68.8 cm/s Mitral A Point Velocity 88.0 cm/s Mitral E to A Ratio 0.8 MV Deceleration Time 254.9 ms TR Peak Velocity 247.5 cm/s TR Peak Gradient 24.5 mmHg Right Atrial Pressure 5.0 mmHg Pulmonary Artery Systolic Pressu 29.5 mmHg Right Ventricular Systolic Press 29.5 mmHg PV Peak Velocity 93.0 cm/s PV Peak Gradient 3.5 mmHg FINDINGS Left Ventricle Left ventricular ejection fraction is estimated at 55-60 %. Left ventricular cavity size normal. Left ventricular wall thickness normal. No obvious regional wall motion abnormalities. Right Ventricle Normal right ventricular size and function. Right ventricular systolic pressure within normal limits. Right Atrium Normal right atrial size. Left Atrium Normal left atrial size. Mitral Valve Mitral valve thickened. No evidence for mitral valve prolapse. No mitral stenosis. Trace to mild mitral regurgitation. Aortic Valve Trileaflet aortic valve. Mild aortic stenosis. Trace aortic regurgitation. Tricuspid Valve Structurally normal tricuspid valve. No tricuspid stenosis. Mild tricuspid regurgitation. Pulmonic Valve Structurally normal pulmonic valve. No pulmonic stenosis. Mild pulmonic regurgitation. Pericardium No pericardial effusion. Aorta Normal size aortic root and proximal ascending aorta. CONCLUSIONS Normal LV systolic function Aortic sclerosis with mild stenosis No pericardial effusion Previewed by: Dr. Derek Glover MD (Electronically Signed) Final Date: 09 Jul 2024 13:44
== END | disposition home or self-care (01) ==
LOC: RADECHMAIN 14:46
PROVIDERS: ATTEND Emergency Medicine
DX: R01.1 Cardiac murmur, unspecified (principal); I70.0 Atherosclerosis of aorta; I07.1 Rheumatic tricuspid insufficiency; I37.1 Nonrheumatic pulmonary valve insufficiency
CPT/HCPCS: 93306